=== PATIENT | male | born 1960 | race Caucasian/White ===

== ENCOUNTER 2024-04-18 14:08 | Outpatient (AMB) | payer MEDICARE, OTHER, SELFPAY ==
[2024-04-18 14:31] VITALS: BP 122/62; PULSE 75; O2SAT 92; BMI 47.2
--- NOTE | 2024-04-18 14:31 | HO.NEPHOV ---
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 He is severe hypokalemia and he is on high dose of diuretics. Since his last visit he has lost about 20 lb. Mofanro added 4 weeks [facility] Family History Mother Cancer Heart disease Hypertension Father Hypertension Diabetes Stroke Heart disease Physical Exam Vital Signs: Last Vital Signs Pulse 75 04/18/24 14:31 BP 122/62 04/18/24 14:31 Pulse Ox 92 04/18/24 14:31 Oxygen Delivery Method Room Air 04/18/24 14:31 BMI result Body Mass Index 47.2 Const General: comfortable Nutritional Appearance: well nourished Orientation/consciousness: patient oriented x3 HEENT Head: No normal to inspection Mouth: moist mucous membranes Neck Neck: Yes supple and Yes no JVD Resp Auscultation: clear to auscultation bilaterally, no rales and rub present Cardio Jugular venous distension: no JVD Palpation: no palpable S3 and no palpable S4 Heart sounds: no rubs GI Palpation (GI): Soft to palpation and nontender Percussion: No Fluid wave present General: Yes no CVA tenderness Back/Spine/Pelvis Back: no CVA tenderness Skin General skin exam: no rashes or lesions noted Neuro General: patient oriented x3 Extrem General: No clubbing, Yes edema and Yes other (Leg ulcers) Results Reviewed Results Reviewed: Labs reviewed Nephrology Results: No Data to Display Assessment & Plan Assessment & Plan (1) CKD (chronic kidney disease): Code(s): N18.9 - Chronic kidney disease, unspecified Category: Medical (2) Hypokalemia: Code(s): E87.6 - Hypokalemia Category: Medical Plan Dean has CKD 3B in the setting of longstanding hypertension diabetes medicine obesity. Serum creatinine has been stable around baseline of 1.4-1.8. Goal is to slow the portion disease Continue overt nephrotoxic agents including NSAIDs. He is significant fluid overload. He is currently on Lasix 80 mg along with metolazone 2.5 mg. Due to high dose of diuretics he has had significant hypokalemia requiring potassium supplementation 12 tablets twice a day. Repeat serum electrolytes ordered. History of resistant hypertension primarily due to fluid overload At this point blood pressure is well controlled. Not been able to tolerate spironolactone. We will continue with amiloride 2.5 mg. In the past he was not able to tolerate higher dose of 5 mg. Mild secondary hyperparathyroidism we will check PTH and calcium prior to next visit. Orders: Orders Complete Blood Count Auto Diff Today E87.6 - Hypokalemia, N18.30 - Chronic kidney disease, stage 3 unspecified, N18.9 - Chronic kidney disease, unspecified Creatinine Urine Today E87.6 - Hypokalemia, N05.9 - Unspecified nephritic syndrome with unspecified morphologic changes, N18.9 - Chronic kidney disease, unspecified Comprehensive Met. Panel Today E87.6 - Hypokalemia, N18.9 - Chronic kidney disease, unspecified Total Protein Urine Random Today E87.6 - Hypokalemia, N18.9 - Chronic kidney disease, unspecified UA and rflx microscopic Today E87.6 - Hypokalemia, N18.9 - Chronic kidney disease, unspecified Coding Level of Care Code Est Pt Level 4 (74131) Diagnoses CKD (chronic kidney disease) N18.9 Hypokalemia E87.6
== END 2024-04-18 14:51 | disposition home or self-care (01) ==
LOC: HO.HKAE 14:08
PROVIDERS: PCP Internal Medicine; Referring Provider Internal Medicine; Visit Provider Internal Medicine Hypertension Specialist
DX: N18.9 Chronic kidney disease, unspecified (principal); E87.6 Hypokalemia
CPT/HCPCS: 99214

== ENCOUNTER → 2024-04-18 14:08 | Outpatient (BNVA) | payer MEDICARE, SELFPAY | PROVIDERS: PCP Internal Medicine; Visit Provider Internal Medicine Hypertension Specialist | DX: E87.6 Hypokalemia (principal); N18.30 Chronic kidney disease, stage 3 unspecified | CPT/HCPCS: 99212 ==

== ENCOUNTER 2024-08-22 14:39 | Outpatient (AMB) | payer MEDICARE, OTHER, SELFPAY ==
[2024-08-22 14:35] VITALS: BP 124/64; PULSE 67; O2SAT 98; BMI 44.1
--- NOTE | 2024-08-22 14:35 | HO.NEPHOV_ITS ---
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 Accompanied by: Self / Same As Patient Allergies amoxicillin Allergy (Unknown, Verified 08/22/24 14:40) Unknown dobutamine Allergy (Unknown, Verified 08/22/24 14:40) Unknown niacin Allergy (Unknown, Verified 08/22/24 14:40) Unknown oxycodone Allergy (Unknown, Verified 08/22/24 14:40) Unknown lodinated contrast media Allergy (Unknown, Uncoded 04/09/24 15:25) Unknown Medication List - Last Reconciled 08/22/24 by Erasmo Meyer MD alprazolam mg PO amiloride 2.5 mg PO DAILY bupropion HCl XL 150 mg PO QAM bupropion HCl XL 300 mg PO DAILY carvedilol 25 mg PO DAILY clopidogrel 75 mg PO DAILY furosemide 80 mg PO DAILY insulin glargine (Lantus U-100 Insulin) 32 units subcut BID insulin lispro (Humalog KwikPen (U-100) Insulin) 32 units subcut PRN insulin syringe-needle U-100 As directed metolazone 2.5 mg PO DAILY nitroglycerin 0.4 mg/hr transdermal pantoprazole 40 mg PO BID potassium chloride ER (Klor-Con) mEq PO ranolazine ER 500 mg PO DAILY rosuvastatin 40 mg PO DAILY sacubitril-valsartan 49-51 mg (Entresto) 1 tab PO BID tirzepatide (Mounjaro) mg subcut QWEEK warfarin 5 mg PO DAILY warfarin 1 mg PO DAILY HPI Comments Details: Dean is a pleasant 63-year-old man with a history of longstanding diabetes mellitus hypertension obesity. He is severe hypokalemia and he is on high dose of diuretics. Since his last visit he has lost about 20 lb. Mounjaro added in February He has lost > 30 lbs Feels dizzy when he bends down Still on LAsix 80 mf and MMetolazone 2.5 mg QD KCL 12 tabs a day PFSH Family History Mother Cancer Heart disease Hypertension Father Hypertension Diabetes Stroke Heart disease Physical Exam Vital Signs: Last Vital Signs Pulse 67 08/22/24 14:35 BP 124/64 08/22/24 14:35 Pulse Ox 98 08/22/24 14:35 Oxygen Delivery Method Room Air 08/22/24 14:35 BMI result Body Mass Index 44.1 Const General: comfortable Nutritional Appearance: well nourished Orientation/consciousness: patient oriented x3 HEENT Head: No normal to inspection Mouth: moist mucous membranes Neck Neck: Yes supple and Yes no JVD Resp Auscultation: clear to auscultation bilaterally, no rales and rub present Cardio Jugular venous distension: no JVD Palpation: no palpable S3 and no palpable S4 Heart sounds: no rubs GI Palpation (GI): Soft to palpation and nontender Percussion: No Fluid wave present General: Yes no CVA tenderness Back/Spine/Pelvis Back: no CVA tenderness Skin General skin exam: no rashes or lesions noted Neuro General: patient oriented x3 Extrem General: No clubbing, Yes edema and Yes other (Leg ulcers) Results Reviewed Nephrology Results: No Data to Display Assessment & Plan Assessment & Plan (1) CKD (chronic kidney disease): Code(s): N18.9 - Chronic kidney disease, unspecified Category: Medical (2) Hypokalemia: Code(s): E87.6 - Hypokalemia Category: Medical Plan Dean has CKD 3B in the setting of longstanding hypertension diabetes medicine obesity. Serum creatinine has been stable around baseline of 1.4-1.8. Goal is to slow the portion disease Continue overt nephrotoxic agents including NSAIDs. s/p fluid overload. He is currently on Lasix 80 mg along with metolazone 2.5 mg. Due to high dose of diuretics he has had significant hypokalemia requiring potassium supplementation 12 tablets twice a day. Repeat serum electrolytes ordered. Check today and again once a month x 2 History of resistant hypertension primarily due to fluid overload At this point blood pressure is well controlled. Not been able to tolerate spironolactone. We will continue with amiloride 2.5 mg. In the past he was not able to tolerate higher dose of 5 mg. Decrease Metolazone to 2.5 mg QOD Orders: Orders Basic Metabolic Panel 1 Month E87.6 - Hypokalemia, N18.9 - Chronic kidney disease, unspecified Basic Metabolic Panel 2 Months E87.6 - Hypokalemia, N18.9 - Chronic kidney disease, unspecified Basic Metabolic Panel Today E87.6 - Hypokalemia, N18.9 - Chronic kidney disease, unspecified Coding Level of Care Code Est Pt Level 4 (23479) Diagnoses CKD (chronic kidney disease) N18.9 Hypokalemia E87.6
== END 2024-08-22 14:59 | disposition home or self-care (01) ==
PROVIDERS: PCP Internal Medicine; Visit Provider Internal Medicine Hypertension Specialist
DX: E11.22 Type 2 diabetes mellitus with diabetic chronic kidney disease (principal); N18.32 Chronic kidney disease, stage 3b; E87.6 Hypokalemia
CPT/HCPCS: 99214

== ENCOUNTER → 2024-08-22 14:39 | Outpatient (BNVA) | payer MEDICARE, OTHER, SELFPAY | PROVIDERS: PCP Internal Medicine; Visit Provider Internal Medicine Hypertension Specialist | DX: N18.9 Chronic kidney disease, unspecified (principal); E87.6 Hypokalemia | CPT/HCPCS: 99212 ==

== ENCOUNTER 2024-11-07 13:54 | Outpatient (AMB) | payer MEDICARE, OTHER, SELFPAY ==
[2024-11-07 13:56] VITALS: BP 128/70; PULSE 76; O2SAT 98; BMI 45.6
--- NOTE | 2024-11-07 13:56 | HO.NEPHOV_ITS ---
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 Accompanied by: Self / Same As Patient Allergies amoxicillin Allergy (Unknown, Verified 11/07/24 13:58) Unknown dobutamine Allergy (Unknown, Verified 11/07/24 13:58) Unknown niacin Allergy (Unknown, Verified 11/07/24 13:58) Unknown oxycodone Allergy (Unknown, Verified 11/07/24 13:58) Unknown lodinated contrast media Allergy (Unknown, Uncoded 04/09/24 15:25) Unknown Medication List - Last Reconciled 11/07/24 by Erasmo Meyer MD alprazolam mg PO amiloride 2.5 mg PO DAILY bupropion HCl XL 150 mg PO QAM bupropion HCl XL 300 mg PO DAILY carvedilol 25 mg PO DAILY clopidogrel 75 mg PO DAILY furosemide 80 mg PO DAILY insulin glargine (Lantus U-100 Insulin) 32 units subcut BID insulin lispro (Humalog KwikPen (U-100) Insulin) 32 units subcut PRN insulin syringe-needle U-100 As directed metolazone 2.5 mg PO DAILY nitroglycerin 0.4 mg/hr transdermal pantoprazole 40 mg PO BID potassium chloride ER (Klor-Con) mEq PO ranolazine ER 500 mg PO DAILY rosuvastatin 40 mg PO DAILY sacubitril-valsartan 49-51 mg (Entresto) 1 tab PO BID tirzepatide (Mounjaro) mg subcut QWEEK warfarin 5 mg PO DAILY warfarin 1 mg PO DAILY HPI Comments Details: Dean is a pleasant 63-year-old man with a history of longstanding diabetes mellitus hypertension obesity. He is severe hypokalemia and he is on high dose of diuretics. Since his last visit he has lost about 20 lb. Mounjaro added in February 2024 He has lost > 30 lbs Still on Lasix 80 mf and Metolazone 2.5 mg QD KCL 12 tabs a day PFSH Family History Mother Cancer Heart disease Hypertension Father Hypertension Diabetes Stroke Heart disease Physical Exam Vital Signs: Last Vital Signs Pulse 76 11/07/24 13:56 BP 128/70 11/07/24 13:56 Pulse Ox 98 11/07/24 13:56 Oxygen Delivery Method Room Air 11/07/24 13:56 BMI result Body Mass Index 45.6 Const General: comfortable Nutritional Appearance: well nourished Orientation/consciousness: patient oriented x3 HEENT Head: No normal to inspection Mouth: moist mucous membranes Neck Neck: Yes supple and Yes no JVD Resp Auscultation: clear to auscultation bilaterally, no rales and rub present Cardio Jugular venous distension: no JVD Palpation: no palpable S3 and no palpable S4 Heart sounds: no rubs GI Palpation (GI): Soft to palpation and nontender Percussion: No Fluid wave present General: Yes no CVA tenderness Back/Spine/Pelvis Back: no CVA tenderness Skin General skin exam: no rashes or lesions noted Neuro General: patient oriented x3 Extrem General: No clubbing, Yes edema and Yes other (Leg ulcers) Results Reviewed Nephrology Results: No Data to Display Assessment & Plan Assessment & Plan (1) CKD (chronic kidney disease): Code(s): N18.9 - Chronic kidney disease, unspecified Category: Medical (2) Hypokalemia: Code(s): E87.6 - Hypokalemia Category: Medical Plan Dean has CKD 3B in the setting of longstanding hypertension diabetes medicine obesity. Serum creatinine has been stable around baseline of 1.4-1.8. Goal is to slow the portion disease Continue overt nephrotoxic agents including NSAIDs. s/p fluid overload. He is currently on Lasix 80 mg along with metolazone 2.5 mg. Due to high dose of diuretics he has had significant hypokalemia requiring potassium supplementation 12 tablets twice a day. Repeat serum electrolytes ordered. History of resistant hypertension primarily due to fluid overload At this point blood pressure is well controlled. Not been able to tolerate spironolactone. We will continue with amiloride 2.5 mg. In the past he was not able to tolerate higher dose of 5 mg. Keep Metolazone 2.5 mg Orders: Orders Basic Metabolic Panel 4 Months E87.6 - Hypokalemia, N18.9 - Chronic kidney disease, unspecified Coding Level of Care Code Est Pt Level 4 (24636) Diagnoses CKD (chronic kidney disease) N18.9 Hypokalemia E87.6
--- OUTSIDE RECORDS SUMMARY | 2024-11-08 02:38 | XMS_ITS ---
Author Name [facility] Organization Unknown Results Test Name/Text Value Interpretation Date Range Source PT TIME PPP 36sec Above high normal [id number] 10.5 - 13.3 [facility] INR PPP 3.1 Above high normal [id number] 0.8 - 1.1 [facility] Hgb A1c MFr Bld HPLC 7% Above high normal [id number] 3 - 5.7 [facility] BUN SERPL [facility] 18mg/dL Normal [id number] 9 - 20 [facility] CREAT SERPL [facility] 1.4mg/dL Above high normal [id number] 0. 7 - 1.3 [facility] Glomerular filtration rate/1.73 sq M. predicted 56 Below low normal [id number] 60 - [facility] SODIUM SERPL [facility] 140mmol/L Normal [id number] 135 - 145 [facility] ANION GAP SERPL [facility] 7mmol/L Normal [id number] 5 - 14 [facility] HCO3 SER [facility] 36mmol/L Above high normal [id number] 24 - 32 [facility] CHLORIDE SERPL [facility] 97mmol/L Below low normal [id number] 98 - 107 [facility] POTASSIUM SERPL [facility] 3.3mmol/L Below low normal [id number] 3.5 - 5.1 [facility] PT TIME PPP 32.8sec Above high normal [id number] 10.5 - 13.3 [facility] INR PPP 2.8 Above high normal [id number] 0.8 - 1.1 [facility] PT TIME PPP 36.6sec Above high normal [id number] 10.5 - 13.3 [facility] INR PPP 3 Above high normal [id number] 0.8 - 1.1 [facility] History of Medication Use Medication Directions Dispensed Refills Start Date End Date Stat MOUNJARO 5mg/0.5mL Pre-Filled Pen Solution for Injection 06/21/2024 active tirzepatide (Mounjaro) 2.5 MG/0.5ML Inject 0.5 mL (2.5 mg total) under the skin once a week. 04/27/2024 aborted tirzepatide (Mounjaro) 5 MG/0.5ML Inject 0.5 mL (5 mg total) under the skin every 7 days. 04/27/2024 active Blood Glucose Monitoring Suppl (Accu-Chek Guide) w/Device KIT 1 Device by Does not apply route 3 (three) times a day. Use to test blood sugar daily. 04/27/2024 active Silvadene 1% Topical Cream 04/06/2024 active Klor-Con M10 10 MEQ tablet TAKE 12 TABLETS BY MOUTH TWICE DAILY DO NOT CRUSH CHEW OR SPLIT. 03/29/2024 active nitroglycerin (NITRODUR) 0.4 MG/HR APPLY PATCH TRANSDERMALLY EVERY DAY REMOVE AFTER 12 HOURS 03/29/2024 active buPROPion (WELLBUTRIN XL) 300 MG 24 hr tablet Take by mouth every morning. 03/29/2024 active MAGNESIUM OXIDE PO Take 400 mg by mouth daily. 03/29/2024 active insulin glargine (LANTUS) injection 100 units/mL INJECT 68 UNITS UNDER THE SKIN TWICE DAILY 03/29/2024 active Insulin Lispro, 1 Unit Dial, (HumaLOG KWIKPEN) 100 UNIT/ML SOPN ADMINISTER UP TO 40 UNITS UNDER THE SKIN TWICE DAILY BEFORE MEALS 03/29/2024 active nitroglycerin (NITROSTAT) 0.[address] 1 tablet (0.4 mg total) under the tongue every 5 (five) minutes as needed. 03/29/2024 active gentamicin (GARAMYCIN) 0.1 % ointment Apply topically daily. 03/29/2024 active ENTRESTO 49-51 MG per tablet 1 tablet 2 (two) times a day. 03/29/2024 active Glucagon (Gvoke HypoPen 2-Pack) 1 MG/0.2ML SOAJ Inject 1 mg under the skin as needed (for severe hypoglycemia, if used call 911). 03/29/2024 active carvedilol (COREG) 25 MG tablet Take by mouth every morning. 03/29/2024 active KLOR-CON 10 10 MEQ tablet Take 24 mEq by mouth daily. 03/29/2024 active warfarin (COUMADIN) 5 MG tablet TK 1 T PO QD 03/29/2024 active warfarin (COUMADIN) 1 MG tablet Take by mouth. Takes 9 mg on Tuesdays and Saturdays. Takes 6 mg on all other days 03/29/2024 active Blood Glucose Monitoring Suppl (Accu-Chek Guide) w/Device KIT 1 Device by Does not apply route 3 (three) times a day. Use to test blood sugar daily. 03/29/2024 active rosuvastatin (CRESTOR) tablet 40 mg Take by mouth. 03/29/2024 active ALPRAZolam (XANAX) 0.5 MG tablet 3 (three) times a day. 03/29/2024 active ranolazine (RANEXA) 500 MG 12 hr tablet Take 1 tablet (500 mg total) by mouth 2 (two) times a day. 03/29/2024 active pantoprazole (PROTONIX) 40 MG tablet 03/29/2024 active clopidogrel (PLAVIX) 75 MG tablet Take by mouth. 03/29/2024 active tirzepatide (Mounjaro) 2.5 MG/0.5ML Inject 0.5 mL (2.5 mg total) under the skin once a week. 03/29/2024 active PROAIR HFA 108 (90 BASE) MCG/ACT inhaler INHALE 2 PUFFS PO Q 6 H PRN 03/29/2024 active metOLazone (ZAROXOLYN) 2.5 MG tablet 03/29/2024 active buPROPion (WELLBUTRIN XL) 150 MG 24 hr tablet every evening. 03/29/2024 activ e glucose blood test strip Use as instructed 03/29/2024 active furosemide (LASIX) 80 MG tablet Take by mouth every morning. 03/29/2024 active AMILoride (MIDAMOR) 5 MG tablet Take 0.5 tablets (2.5 mg total) by mouth every morning. 03/29/2024 active aMILoride (MIDAMOR) 5 MG tablet Take 5 mg by mouth daily. 03/28/2024 active albuterol (PROVENTIL HFA; VENTOLIN HFA) 108 (90 Base) MCG/ACT inhaler Inhale 2 puffs every 4 (four) hours as needed. 03/28/2024 active ALPRAZolam (XANAX) 0.5 MG tablet Take 0.5 mg by mouth 4 times daily (every 6 hours) as needed. anxiety 03/28/2024 active furosemide (LASIX) 80 MG tablet Take 80 mg by mouth daily. 03/28/2024 active rosuvastatin (CRESTOR) 40 MG tablet Take 40 mg by mouth daily. 03/28/2024 active insulin glargine (Lantus) 100 units/mL injection Inject 72 Units under the skin nightly. 03/28/2024 active carvedilol (COREG) 25 MG tablet Take 25 mg by mouth 2 (two) times a day with meals. 03/28/2024 active buPROPion (WELLBUTRIN XL) 300 MG 24 hr tablet Take 300 mg by mouth every morning. 03/28/2024 active buPROPion (WELLBUTRIN XL) 150 MG 24 hr tablet Take 150 mg by mouth every morning. 03/28/2024 active clopidogrel (PLAVIX) 75 MG tablet Take 75 mg by mouth daily. 03/28/2024 active insulin lispro (HumaLOG MALIK KWIKPEN) 100 UNIT/ML prefilled pen injection Inject 52 Units under the skin 3 (three) times a day before meals. 03/28/2024 active sacubitril-valsartan (ENTRESTO) 49-51 mg per tablet Take 1 tablet by mouth 2 (two) times a day. 03/28/2024 active raNOLazine (raNEXa) 500 MG 12 hr tablet Take 500 mg by mouth twice daily (every 12 hours). 03/28/2024 active metolazone (ZAROXOLYN) 2.5 MG tablet Take 2.5 mg by mouth daily. 03/28/2024 active warfarin (COUMADIN) 1 MG tablet Take 1 mg by mouth daily at the same time. 03/28/2024 active warfarin (COUMADIN) 5 MG tablet Take 5 mg by mouth daily at the same time. 03/28/2024 active liraglutide (VICTOZA) 18 MG/3ML prefilled pen injection Inject 1.8 mg under the skin daily. 03/28/2024 active potassium chloride (KLOR-CON M10) 10 MEQ tablet Take 120 mEq by mouth 2 (two) times a day. 03/28/2024 active PANTOprazole (PROTONIX) 40 MG EC tablet Take 40 mg by mouth daily. 03/28/2024 active Silvadene 1% Topical Cream 03/25/2024 active MOUNJARO 10mg/0.5mL Pre-Filled Pen Solution for Injection 03/25/2024 active nitroglycerin 0.4 mg sublingual tablet TAKE DIRECTED 05/06/2023 a ctive warfarin 1 mg tablet TAKE 1- 2 TABLETS BY MOUTH EVERY DAY DIRECTED 05/06/2023 active Wellbutrin xl 300MG Tablet Extended Release 24 Hour 11/08/2023 active Kenalog 40 mg/mL suspension for injection 05/29/2023 active carvedilol 25 mg tablet TAKE 1 TABLET BY MOUTH EVERY DAY 05/06/2023 active Marcaine (PF) 0.5 % (5 mg/mL) injection solution Take 4 mL by injection route. 05/29/2023 active buPROPion (WELLBUTRIN XL) 150 MG 24 hr tablet every evening. 12/10/2023 activ e Kenalog 10 mg/mL suspension for injection 05/06/2023 active Entresto 49 mg-51 mg tablet TAKE 1 TABLET BY MOUTH TWICE DAILY 05/06/2023 active Nitroglycerin 0.4mg Sublingual Tablet 11/08/2023 active Amiloride Hydrochloride 5mg Tablet 11/08/2023 active liraglutide (Victoza) 18 MG/3ML injection Inject 1.8 mg under the skin daily. 12/10/2023 aborted furosemide (LASIX) 80 MG tablet Take by mouth every morning. 12/10/2023 active Nitroglycerin 0.4mg/hr Transdermal Patch 11/08/2023 active Warfarin Sodium 6mg Tablet 11/08/2023 active warfarin 5 mg tablet TAKE 1 TABLET BY MOUTH EVERY DAY DIRECTED 05/06/2023 active alprazolam 0.5 mg tablet TAKE 1 TABLET BY MOUTH THREE TIMES DAILY 05/06/2023 active KLOR-CON 10 10 MEQ tablet Take 24 mEq by mouth daily. 12/10/2023 active ranolazine (RANEXA) 500 MG 12 hr tablet Take 1 tablet (500 mg total) by mouth 2 (two) times a day. 12/10/2023 active lidocaine (PF) 100 mg/5 mL (2 %) injection syringe Take 4 mL by injection route. 05/06/2023 active clopidogrel 75 mg tablet TAKE 1 TABLET BY MOUTH DAILY 05/06/2023 active Warfarin Sodium 1mg Tablet 11/08/2023 active gentamicin (GARAMYCIN) 0.1 % ointment Apply topically daily. 12/10/2023 active Klor-Con M10 10 MEQ tablet TAKE 12 TABLETS BY MOUTH TWICE DAILY DO NOT CRUSH CHEW OR SPLIT. 12/10/2023 active bupropion HCl XL 150 mg 24 hr tablet, extended release TAKE 1 TABLET BY MOUTH EVERY NIGHT AT BEDTIME 05/06/2023 active Victoza 3-Willis 0.6 mg/0.1 mL (18 mg/3 mL) subcutaneous pen injector ADMINISTER 1.8 MG UNDER THE SKIN DAILY 05/06/2023 active Blood Glucose Monitoring Suppl (ACCU-CHEK DENG SMARTVIEW) w/Device KIT Use to test blood sugar daily. 12/10/2023 active pantoprazole 40 mg tablet,delayed release TAKE 1 TABLET BY MOUTH TWICE DAILY 05/06/2023 active Alprazolam 0.5mg Tablet 11/08/2023 active furosemide 80 mg tablet TAKE 1 TABLET BY MOUTH EVERY DAY 05/06/2023 active KLOR-CON 10 10 MEQ tablet Take 24 mEq by mouth daily. 12/10/2023 active Glucagon (Gvoke HypoPen 2-Pack) 1 MG/0.2ML SOAJ Inject 1 mg under the skin as needed (for severe hypoglycemia, if used call 911). 12/10/2023 active Humalog KwikPen (U-100) Insulin 100 unit/mL subcutaneous INJECT UP TO 54 UNITS UNDER THE SKIN TWICE DAILY BEFORE MEALS 05/06/2023 active pantoprazole (PROTONIX) 40 MG tablet 12/10/2023 active rosuvastatin (CRESTOR) tablet 40 mg Take by mouth. 12/10/2023 active Marcaine (PF) 0.5 % (5 mg/mL) injection solution 05/29/2023 active rosuvastatin 40 mg tablet TAKE 1 TABLET BY MOUTH EVERY DAY 05/06/2023 active MAGNESIUM OXIDE PO Take 400 mg by mouth daily. 12/10/2023 active ranolazine ER 500 mg tablet,extended release,12 hr TAKE 1 TABLET BY MOUTH EVERY DAY 05/06/2023 active buPROPion (WELLBUTRIN XL) 300 MG 24 hr tablet Take by mouth every morning. 12/10/2023 active metolazone 2.5 mg tablet 05/06/2023 active carvedilol (COREG) 25 MG tablet Take by mouth every morning. 12/10/2023 active lidocaine (PF) 100 mg/5 mL (2 %) injection syringe 05/06/2023 active Lantus Solostar U-100 Insulin 100 unit/mL (3 mL) subcutaneous pen ADMINISTER 74 UNITS UNDER THE SKIN TWICE DAILY 05/06/2023 active amiloride 5 mg tablet TAKE 1/2 TABLET BY MOUTH EVERY DAY 05/06/2023 active warfarin (COUMADIN) 5 MG tablet TK 1 T PO QD 12/10/2023 active clopidogrel (PLAVIX) 75 MG tablet Take by mouth. 12/10/2023 active Semaglutide,0.25 or 0.5MG/DOS, (Ozempic, 0.25 or 0.5 MG/DOSE,) 2 MG/3ML SOPN Inject 0.75 mL (0.5 mg total) under the skin once a week. 12/10/2023 active Kenalog 40 mg/mL suspension for injection Take 1 mL by injection route. 05/29/2023 active metOLazone (ZAROXOLYN) 2.5 MG tablet 12/10/2023 active ALPRAZolam (XANAX) 0.5 MG tablet 3 (three) times a day. 12/10/2023 active AMILoride (MIDAMOR) 5 MG tablet Take 0.5 tablets (2.5 mg total) by mouth every morning. 12/10/2023 active Lantus U-100 Insulin 100 unit/mL subcutaneous solution INJECT 84 UNITS UNDER THE SKIN TWICE DAILY. 05/06/2023 active Accu-Chek SmartView Test Strips TEST FOUR TIMES DAILY 05/06/2023 active warfarin (COUMADIN) 1 MG tablet Take by mouth. Takes 9 mg on Tuesdays and Saturdays. Takes 6 mg on all other days 12/10/2023 active PROAIR HFA 108 (90 BASE) MCG/ACT inhaler INHALE 2 PUFFS PO Q 6 H PRN 12/10/2023 active nitroglycerin (NITROSTAT) 0.[address] 1 tablet (0.4 mg total) under the tongue every 5 (five) minutes as needed. 12/10/2023 active Lantus 11/08/2023 active Ranexa 500MG Tablet Extended Release 12 Hour 11/08/2023 active Bupropion Hydrochloride 150mg Extended-Release (XL) Tablet 11/08/2023 active nitroglycerin (NITRODUR) 0.4 MG/HR APPLY PATCH TRANSDERMALLY EVERY DAY REMOVE AFTER 12 HOURS 12/10/2023 active bupropion HCl XL 300 mg 24 hr tablet, extended release TAKE 1 TABLET BY MOUTH EVERY DAY 05/06/2023 active nitroglycerin 0.4 mg/hr transdermal 24 hour patch APPLY 1 PATCH TRANSDERMALLY EVERY DAY AND REMOVE AFTER 12 HOURS 05/06/2023 active Kenalog 10 mg/mL suspension for injection Take 2 mL by injection route. 05/06/2023 active ENTRESTO 49-51 MG per tablet 1 tablet 2 (two) times a day. 12/10/2023 active insulin glargine (LANTUS) injection 100 units/mL INJECT 84 UNITS UNDER THE SKIN TWICE DAILY. 12/10/2023 active Klor-Con 10 mEq tablet,extended release TAKE 12 TABLETS BY MOUTH TWICE DAILY. 05/06/2023 active Insulin Lispro, 1 Unit Dial, (HumaLOG KWIKPEN) 100 UNIT/ML SOPN INJECT UP TO 52 UNITS UNDER THE SKIN TWICE DAILY BEFORE MEALS 12/10/2023 active Allergies Allergen Reaction Severity Comment Documented Date Source Statu s DYES ENS_PODCRCT Problems Problem Status Onset Date Problem Type Date of Resolution Source Contusion of right great toe with damage to nail, sequela active 2020-07-29 8 ProblemAct ENS_PODCRCT Type 2 diabetes mellitus with diabetic polyneuropathy active 2024-05-29 3 EncounterDiagnosisAct ENS_PODCRCT Osteoarthritis of left knee joint active 2023-04-30 0 ProblemAct ENS_AONECT Ulcer - Non-pressure/diabetic /venous stasis of LEFT toe(s) limited to breakdown of skin active 1 ProblemAct ENS_PODCRCT Ulcer - Non-pressure/diabetic /venous stasis of RIGHT toe(s) limited to breakdown of skin active 2020-07-29 8 ProblemAct ENS_PODCRCT Dystrophia unguium active 2019-04-28 4 ProblemAct [facility] Contusion of right great toe with damage to nail, initial encounter active 8 ProblemAct [facility]NS_PODCR[facility] Ulcer - Non-pressure/diabetic /venous stasis of LEFT lower leg (NOT CALF) limited to breakdown of skin active 2024-05-29 3 ProblemAct ENS_PODCRCT Degenerative arthritis of thoracic spine active 2015-05-30 0 ProblemAct [facility] Insulin treated type 2 diabetes mellitus active 2016-10-29 1 ProblemAct ENS_PODCRCT CONTUSION OF TOE active 2012-09-28 3 ProblemAct ENS_PODCRCT Contusion of left lesser toe(s) with damage to nail, subsequent encounter active 2020-02-28 9 ProblemAct ENS_PODCRCT Cellulitis of left lower limb active 2020-02-28 2 ProblemAct ENS_PODCRCT DIABETES UNCOMP /CONTROLLED active 2012-09-28 3 ProblemAct ENS_PODCRCT Blister left lesser toe(s), initial encounter active 1 ProblemAct ENS_PODCRCT Absent pedal pulses active 9 ProblemAct ENS_PODCRCT Peroneal tendinitis, left leg active 9 ProblemAct ENS_PODCR[facility] Neurologic disorder associated with type II diabetes mellitus active 2016-07-30 8 ProblemAct ENS_PODCRCT Type 2 diabetes mellitus with foot ulcer active 2020-07-29 8 ProblemAct ENS_PODCRCT Contusion of left great toe without damage to nail, initial encounter active 2021-03-28 2 ProblemAct ENS_PODCRCT PARONYCHIA TOE active 2012-09-28 3 ProblemAct [facility] Diabetic polyneuropathy active 2015-05-30 0 ProblemAct [facility] Chronic kidney disease, stage IV (severe) active 2018-06-28 2 ProblemAct [facility] Hyperlipidemia active 2015-05-30 0 ProblemAct [facility] Lightheadedness active 2018-06-28 2 ProblemAct [facility] Right-sided chest pain active 2018-06-28 2 ProblemAct [facility] Equinus,Tailor bunion, acquired pes cavus, plantar flex met, LEFT other acquired deformities active 2016-04-29 4 ProblemAct ENS_PODCRCT Pain in left toe(s) active 2020-05-29 9 ProblemAct ENS_PODCRCT Equinus, Tailor bunion, acquired pes cavus, plantar flex met, RIGHT other acquired deformities active 2016-04-29 4 ProblemAct ENS_PODCRCT Contusion of left lesser toe(s) with damage to nail, initial encounter active 2020-02-28 2 ProblemAct ENS_PODCR[facility] Onychogryphosis -Nail active 2016-04-29 4 ProblemAct ENS_PODCRCT Controlled type 2 diabetes mellitus with diabetic nephropathy, with long-term current use of insulin active 2017-01-27 7 ProblemAct [facility] Supratherapeutic INR active 2018-06-28 2 ProblemAct [facility] Nephritis and nephropathy, not specified as acute or chronic, with other specified pathological lesion in kidney, in diseases classified elsewhere active 2015-05-30 0 ProblemAct [facility] Coronary atherosclerosis active 2015-05-30 0 ProblemAct [facility] CRI (chronic renal insufficiency) active 2015-05-30 0 ProblemAct [facility] Essential hypertension active 2015-05-30 0 ProblemAct [facility] Ingrowing nail active 8 ProblemAct ENS_PODCRCT Cellulitis of right toe, paronychia active 2024-02-28 3 ProblemAct ENS_PODCRCT Activity, walking, marching and hiking active 2020-02-28 9 ProblemAct ENS_PODCRCT Pain in right toe(s) active 8 ProblemAct [facility]NS[facility]POD[facility] INGROWING NAIL active 2012-09-28 3 ProblemAct ENS_PODCRCT
--- OUTSIDE RECORDS SUMMARY | 2024-11-08 02:38 | XMS_ITS | Continuity of Care Document ---
Author Organization [facility] Address [address] [place] [address] [address] [place] [address] Phone Care Team Providers Care Medical Management Specialist Name Role Phone Ricardo Bunch MD Unavailable Unavailable Procedures Procedure Date Office/Oupt E&M New Pt 45 Mins- CT & [place] Duplex Scan-extrem Veins; Comp- [place] & [place] Advance Directives Directive Yes / No Effective Date File Name No Information Encounters Encounter Description Practice Location Reason(s) For Visit Diagnoses Date Provider Providers Copied on Encounter Office/Oupt E&M New Pt 45 Mins- [place] & [place] [facility], [address], [place], [place], [id number], tel:[phone] [facility] - [place] - [place] Varicose veins of bilateral lower extremities with other complicationsVaric ose veins of right lower extremity with inflammationVarico se veins of left lower extremity with inflammationVarico se veins of right lower extremity with ulcer of calfType 2 diabetes mellitus without complicationsEssen tial (primary) hypertensionVarico se veins of left lower extremity with ulcer of calfLymphedema, not elsewhere classifiedPruritus , unspecifiedDisorde r of pigmentation, unspecifiedNon-pre ssure chronic ulcer of right calf with unspecified severityNon-pressu re chronic ulcer of left calf with unspecified severityPain in right legPain in left legPain in right lower legPain in left lower legHereditary lymphedemaLocalize d edema 4 Alivia Silva. [address] [place], [address], [place]. tel: [phone] Referring Provider: Fadumo Stewart, [address], [place], [address]. tel:[phone] [facility], [address] [address], [place], [place], [id number], [place] [phone] [facility] - [place] Chronic venous hypertension (idiopathic) with other complications of bilateral lower extremity 4 Laz Magaña. [address] [place] [address], [address], [place], [place], [id number] , . tel: [phone] Referring Provider: Gómez Treviño, [address] [place] [address] [address], [place], [address] . tel:[phone] Family History Family Member Type Diagnosis Age At Onset No Information Payers Payer name Insurance type Covered republican ID Authoriza tion(s) [employer] Medicare Advantage [id number] Medical Assistance [facility] [id number] Social History Type Description Quantity Date Captured Comments Alcohol Use Details Unknown Caffeine Use Details Unknown Tobacco Use Status Current non-smoker Smoking Status Never Smoker Non-Smoking Tobacco Use Details : No Details Available : No Details Available Sex Male Vital Signs Date / Time: Height Weight BMI Pulse Rate Blood Pressure Temperature Respiratory Rate Body Surface Area Head Circumference Head Circ. Percentile Wt./Santhosh. Percentile BMI percentile Pulse Ox Inhaled Ox 157.850 kg (348.00 lbs) 47.2 0 kg/m eter (2) 118/70 mm[Hg] Chief Complaint And Reason For Visit No Information Reason For Referral Reason For Referral No Information Plan Of Treatment Date Type Action Status Goal Diet education completed Referral Ordered: Weight management: Referral to physician timeframe: 3 Months (related to Body mass index (BMI) 45.0-49.9, adult) ordered History Of Present Illness Encounter Date Complaint History Of Prese nt Illness No Information Functional Status Date Functional Assessmen t No Information Instructions Date Instruction Additional Infor mation Pre and post instruc tions reviewed and provided Related to Varicose veins of bilateral lower extremities with other complications Diet education Related to Body mass index (BMI) 45.0-49.9, adult Giving Encouragement to exercise Related to Body mass index (BMI) 45.0-49.9, adult Lifestyle education Related to B arjun mass index (BMI) 45.0-49.9, adult Patient education booklet given Related to Varicose veins of bilateral lower extremities with other complications Assessments Type Assessment Date No Information Patient Care Teams Name Effective Dates (start - stop) Status Members No Information
== END 2024-11-07 14:13 | disposition home or self-care (01) ==
PROVIDERS: PCP Internal Medicine Pulmonary Disease; Visit Provider Internal Medicine Hypertension Specialist
DX: I12.9 Hypertensive chronic kidney disease with stage 1 through stage 4 chronic kidney disease, or unspecified chronic kidney disease (principal); E11.22 Type 2 diabetes mellitus with diabetic chronic kidney disease; N18.32 Chronic kidney disease, stage 3b; E87.6 Hypokalemia
CPT/HCPCS: 99214

== ENCOUNTER → 2024-11-07 13:54 | Outpatient (BNVA) | payer MEDICARE, OTHER, SELFPAY | PROVIDERS: PCP Internal Medicine Pulmonary Disease; Visit Provider Internal Medicine Hypertension Specialist | DX: E11.22 Type 2 diabetes mellitus with diabetic chronic kidney disease (principal); I12.9 Hypertensive chronic kidney disease with stage 1 through stage 4 chronic kidney disease, or unspecified chronic kidney disease; N18.9 Chronic kidney disease, unspecified; E87.6 Hypokalemia | CPT/HCPCS: 99212 ==

== ENCOUNTER 2025-03-20 14:28 | Outpatient (AMB) | payer MEDICARE, OTHER, SELFPAY ==
[2025-03-20 14:33] VITALS: BP 112/60; PULSE 73; O2SAT 98; BMI 43.2
--- NOTE | 2025-03-20 14:33 | HO.NEPHOV ---
Vital Signs 03/20/25 14:33 Height 6 ft Weight 318 lb 6 oz BMI 43.2 BP 112/60 Blood Pressure Location Lt brachial Position Sitting Pulse 73 Pulse Source Pulse Oximeter Pulse Oximetry (%) 98 Oxygen Delivery Method Room Air Intake Visit Reasons: CKD/ Conf Allergies amoxicillin Allergy (Unknown, Verified 03/20/25 14:36) Unknown dobutamine Allergy (Unknown, Verified 03/20/25 14:36) Unknown niacin Allergy (Unknown, Verified 03/20/25 14:36) Unknown oxycodone Allergy (Unknown, Verified 03/20/25 14:36) Unknown lodinated contrast media Allergy (Unknown, Uncoded 03/20/25 14:36) Unknown Medication List - Last Reconciled 03/20/25 by Erasmo Meyer MD alprazolam mg PO amiloride 2.5 mg PO DAILY bupropion HCl XL 150 mg PO QAM bupropion HCl XL 300 mg PO DAILY carvedilol 25 mg PO DAILY clopidogrel 75 mg PO DAILY furosemide 80 mg PO DAILY insulin glargine (Lantus U-100 Insulin) 32 units subcut BID insulin lispro (Humalog KwikPen (U-100) Insulin) 32 units subcut PRN insulin syringe-needle U-100 As directed metolazone 2.5 mg PO DAILY nitroglycerin 0.4 mg/hr transdermal pantoprazole 40 mg PO BID potassium chloride ER (Klor-Con) mEq PO ranolazine ER 500 mg PO DAILY rosuvastatin 40 mg PO DAILY sacubitril-valsartan 49-51 mg (Entresto) 1 tab PO BID tirzepatide (Mounjaro) mg subcut QWEEK warfarin 5 mg PO DAILY warfarin 1 mg PO DAILY HPI Comments Details: Dean is a pleasant 63-year-old man with a history of longstanding diabetes mellitus hypertension obesity. He is severe hypokalemia and he is on high dose of diuretics. Since his last visit he has lost about 20 lb. Mounjaro added in February 2024 He has lost > 30 lbs Still on Lasix 80 mg and Metolazone 2.5 mg QD KCL 12 tabs a day Here for follow up Maunjaro has been increased to 7.5 Wt is down to 318 lbs( 348 last yr) [facility] Family History Mother Cancer Heart disease Hypertension Father Hypertension Diabetes Stroke Heart disease Physical Exam Vital Signs: Last Vital Signs Pulse 73 03/20/25 14:33 BP 112/60 03/20/25 14:33 Pulse Ox 98 03/20/25 14:33 Oxygen Delivery Method Room Air 03/20/25 14:33 BMI result Body Mass Index 43.2 Const General: comfortable Nutritional Appearance: well nourished Orientation/consciousness: patient oriented x3 HEENT Head: No normal to inspection Mouth: moist mucous membranes Neck Neck: Yes supple and Yes no JVD Resp Auscultation: clear to auscultation bilaterally and no rales Cardio Jugular venous distension: no JVD Palpation: no palpable S3 and no palpable S4 Heart sounds: no rubs GI Palpation (GI): Soft to palpation and nontender Percussion: No Fluid wave present General: Yes no CVA tenderness Back/Spine/Pelvis Back: no CVA tenderness Skin General skin exam: no rashes or lesions noted Neuro General: patient oriented x3 Extrem General: No clubbing, Yes edema and Yes other (Leg ulcers) Results Reviewed Results Reviewed: Labs reviewed 03/11/25 Cr 1.8 and K 3.2 Nephrology Results: No Data to Display Assessment & Plan Assessment & Plan (1) CKD (chronic kidney disease): Code(s): N18.9 - Chronic kidney disease, unspecified Category: Medical (2) Hypokalemia: Code(s): E87.6 - Hypokalemia Category: Medical Plan Dean has CKD 3B in the setting of longstanding hypertension diabetes medicine obesity. Serum creatinine has been stable around baseline of 1.4-1.8. Goal is to slow the portion disease Continue to avoid nephrotoxic agents including NSAIDs. s/p fluid overload. He is currently on Lasix 80 mg along with metolazone 2.5 mg. Due to high dose of diuretics he has had significant hypokalemia requiring potassium supplementation 12 tablets twice a day. Repeat serum electrolytes ordered. History of resistant hypertension primarily due to fluid overload At this point blood pressure is well controlled. Not been able to tolerate spironolactone. We will continue with amiloride 2.5 mg. In the past he was not able to tolerate higher dose of 5 mg. Keep Metolazone 2.5 mg at night Watch creatinine Orders: Orders Basic Metabolic Panel 3 Months N18.9 - Chronic kidney disease, unspecified Coding Level of Care Code Est Pt Level 4 (84541) Diagnoses CKD (chronic kidney disease) N18.9 Hypokalemia E87.6
--- OUTSIDE RECORDS SUMMARY | 2025-03-20 17:22 | XMS_ITS | Continuity of Care Document ---
Author Organization [facility] Address [address] [place] [address] [address] [place] [address] Phone Care Team Providers Care Generation Technologist Name Role Phone Ricardo Bunch MD Unavailable [...] [place] & [place] [facility], [address], [place], [place], [id number], tel:[phone] VR - [place] - [place] Varicose veins of bilateral lower extremities with [...] 4 Alivia Silva. [address] [place], [address], [place]. tel: [phone] Referring Provider: Fadumo Stewart, [address], [place], [address]. tel:[phone] [facility], [address] [address], [place], [place], [id number], [place] [phone] VR - [place] Chronic venous hypertension (idiopathic) with other complications of bilateral lower extremity 4 Laz Magaña. [address] [place] [address], [address], [place], [place], [id number] , . tel: [phone] Referring Provider: Gómez Treviño, [address] [place] [address] [address], [place], [address] . tel:[phone] Family History Family Member Type Diagnosis Age At Onset No Information Payers Payer name Insurance type Covered republican ID Authoriza tion(s) [employer] Medicare Advantage [id number] Medical Assistance [facility] [id number] Social History Type Description Quantity Date Captured [...]
--- OUTSIDE RECORDS SUMMARY | 2025-03-20 17:22 | XMS_ITS | Encounter Summary ---
Author Organization [facility] Address [address] [place] [address] Care Team Providers Care Health Educator Name Role Phone Smiley Leo MD Primary Care Provider [phone] Reason for Visit * Reason Onset Date Comments Appointment 02/28/2025 Encounter Details Date Type Department Care Team (Late st Contact Info) Description 02/28/2025 Telephone [facility] [address] [phone] Howard Chow MD [address] [place] [address] Diabetes & Endocrinology [place] [phone] Appointment Social History Tobacco Use Types Packs/Day Years Used Date Smoking Tobacco: Former Cigarettes Q uit: 08/07/1986 Smokeless Tobacco: Never Alcohol Use Standard Drinks/Week Comments No 0 (1 standard drink = 0.6 oz pur e alcohol) Sex and Gender Information Value Date Recorded Sex Assigned at Not on file Legal Sex Male 10:25 AM EST Gender Identity Not on file Sexual Orientation Not on file documented as of this encounter Progress Notes * Jean Holt - 02/28/2025 8:45 AM EDT Left message for pt to call back and schedule a follow up appt. documented in this encounter Plan of Treatment Not on file documented as of this encounter Visit Diagnoses Not on filedocumented in this encounter Care Teams Health Educator Relationship Specialty Start Date End Date Smiley Leo MD [address] [place] [id number] PCP - General Pulmonary Disease 05/30/14 documented as of this encounter
--- OUTSIDE RECORDS SUMMARY | 2025-03-20 17:22 | XMS_ITS | Clinical Summary ---
Author Organization [facility] Address [address] [place] [address] Care Team Providers Care Database Marketing Manager Name Role Phone Smiley Leo MD Primary Care Provider [phone] Allergies No known active allergies Medications metolazone (ZAROXOLYN) 2.5 MG tablet Take 2.5 mg by mouth daily. Active ALPRAZolam (XANAX) 0.5 MG tablet Take 0.5 mg by mouth 4 times daily (every 6 hours) as needed. anxiety Active aMILoride (MIDAMOR) 5 MG tablet Take 5 mg by mouth daily. Active carvedilol (COREG) 25 MG tablet Take 25 mg by mouth 2 (two) times a day with meals. Active rosuvastatin (CRESTOR) 40 MG tablet Take 40 mg by mouth daily. Active sacubitril-vals radha (ENTRESTO) 49-51 mg per tablet Take 1 tablet by mouth 2 (two) times a day. Active insulin glargine (Lantus) 100 units/mL injection Inject 72 Units under the skin nightly. Active insulin lispro (HumaLOG MALIK KWIKPEN) 100 UNIT/ML prefilled pen injection Inject 52 Units under the skin 3 (three) times a day before meals. Active furosemide (LASIX) 80 MG tablet Take 80 mg by mouth daily. Active potassium chloride (KLOR-CON M10) 10 MEQ tablet Take 120 mEq by mouth 2 (two) times a day. Active PANTOprazole (PROTONIX) 40 MG EC tablet Take 40 mg by mouth daily. Active clopidogrel (PLAVIX) 75 MG tablet Take 75 mg by mouth daily. Active albuterol (PROVENTIL HFA; VENTOLIN HFA) 108 (90 Base) MCG/ACT inhaler Inhale 2 puffs every 4 (four) hours as needed. Active raNOLazine (raNEXa) 500 MG 12 hr tablet Take 500 mg by mouth twice daily (every 12 hours). Active liraglutide (VICTOZA) 18 MG/3ML prefilled pen injection Inject 1.8 mg under the skin daily. Active warfarin (COUMADIN) 5 MG tablet Take 5 mg by mouth daily at the same time. Active warfarin (COUMADIN) 1 MG tablet Take 1 mg by mouth daily at the same time. Active buPROPion (WELLBUTRIN XL) 150 MG 24 hr tablet Take 150 mg by mouth every morning. Active buPROPion (WELLBUTRIN XL) 300 MG 24 hr tablet Take 300 mg by mouth every morning. Active Social History Tobacco Use Types Packs/Day Years Used Date Smoking Tobacco: Never Assessed OASIS D0700: Social Isolation Answer Da te Recorded Frequency of experiencing loneliness or isolatio n Never 04/26/2024 OASIS A1250: Transportation Answer Date Recorded Lack of Transportation (Medical) No 04/26/2024 Lack of Transportation (Non-Medical) No 04/26/2024 Patient Unable or Declines to Respond No 04/26/2024 Sex and Gender Information Value Date Recorded Sex Assigned at Not on file Legal Sex Male 6:18 PM EDT Gender Identity Not on file Sexual Orientation Not on file Last Filed Vital Signs Vital Sign Reading Time Taken Comments Blood Pressure 138/78 04/26/2024 11:12 AM EDT Pulse 80 04/26/2024 11:12 AM EDT Temperature 36.6 ??C (97.8 ??F) 04/26/2024 11:12 AM E DT Respiratory Rate 17 04/26/2024 11:12 AM EDT Oxygen Saturation 98% 04/26/2024 11:12 AM EDT Inhaled Oxygen Concentration - - Weight - - Height - - Body Mass Index - - Plan of Treatment Health Maintenance Due Date Last Done Comments Hepatitis C Virus Screening 1960 HIV Screening 1973 DTaP/Tdap/Td Vaccines (1 - Tdap) 1979 Colonoscopy 2005 Pneumococcal Vaccines 50+ (1 of 1 - PCV) 2010 Zoster (Shingles) Vaccine (1 of 2) 2010 RSV Vaccine 60 years and old er and Patients (1 - Risk 60-74 years 1-dose series) 2020 Influenza Vaccine 06/28/2024 COVID-19 Vaccine ( - 2023-2 5 season) 2024 Hepatitis B Vaccines Aged Out No long er eligible based on patient's age to complete this topic Insurance [facility] [place] [address] [facility] Care Teams Database Marketing Manager Relationship Specialty Start Date End Date Smiley Leo MD [address] [place] [address] PCP - General 06/26/13
--- OUTSIDE RECORDS SUMMARY | 2025-03-20 17:22 | XMS_ITS | Clinical Summary ---
Author Organization [facility] Address [address] [place] [address] Phone Care Team Providers Care Pattern Chain Builder Name Role Phone Smiley Leo MD Primary Care Provider [phone] Allergies Active Allergy Reactions Criticality Noted Date Comments Amoxicillin Other (see comments) 10/10/2017 Dobutamine Other (see comments) 10/10/2017 Iodinated Contrast Media Other (see comments) 0 03/23/2021 Niacin Other (see comments) 03/23/2021 Niacin Er (Antihyperlipidemic) 06/26 Oxycodone Other (see comments) 03/23/2021 Medications * This document contains information received from the source organization and may not represent a complete record from that organization. raNITIdine (ZANTAC) 150 MG capsule Take 1 capsule by mouth 2 (two) times a day Active albuterol HFA (PROVENTIL HFA;VENTOLIN HFA) 108 (90 Base) MCG/ACT inhaler as needed 8 Active ALPRAZolam (XANAX) 0.5 MG tablet Take 0.5 mg by mouth 3 times a day 1 Active buPROPion XL (WELLBUTRIN XL) 150 MG 24 hr tablet Take 150 mg by mouth at bed time 1 Active buPROPion XL (WELLBUTRIN XL) 300 MG 24 hr tablet Take 300 mg by mouth 1 (one) time each day 1 Active carvedilol (COREG) 25 MG tablet Take 25 mg by mouth 1 (one) time each day 1 Active clopidogrel (PLAVIX) 75 MG tablet Take 75 mg by mouth 1 (one) time each day 1 Active furosemide (LASIX) 80 MG tablet Take 80 mg by mouth 1 (one) time each day 1 Active Lantus 100 UNIT/ML injection 84 Units 1 Active HumaLOG KWIKPEN 100 UNIT/ML solution pen-injector 52 Units 1 Active Insulin Syringe 30G X 04/12 1 ML misc USE TO INJECT INSULIN TWICE DAILY DIRECTED 0 Active liraglutide (Victoza) 18 MG/3ML injection Inject 1.8 pre-filled pen syringe under the skin 1 (one) time each day 0 Active metOLazone (ZAROXOLYN) 2.5 MG tablet 1 Active nitroglycerin (NITROSTAT) 0.4 MG SL tablet as needed Active pantoprazole (PROTONIX) 40 MG EC tablet Take 40 mg by mouth 2 (two) times a day 1 Active ranolazine (RANEXA) 500 MG 12 hr tablet Take 500 mg by mouth 1 (one) time each day 1 Active rosuvastatin (CRESTOR) 40 MG tablet Take 40 mg by mouth 1 (one) time each day 1 Active Entresto 49-51 MG per tablet Take 1 tablet by mouth 2 (two) times a day 1 Active warfarin (COUMADIN) 1 MG tablet Take by mouth 3 Active warfarin (COUMADIN) 5 MG tablet Take 1 tablet by mouth 1 (one) time each day Active nitroglycerin (NITRODUR) 0.4 MG/HR APPLY PATCH TRANSDERMALLY EVERY DAY REMOVE AFTER 12 HOURS 2 Active potassium chloride (KLOR-CON M10) 10 MEQ CR tablet TAKE 12 TABLETS BY MOUTH TWICE DAILY DO NOT CRUSH CHEW OR SPLIT. 2 Active aMILoride (MIDAMOR) 5 MG tablet Take 0.5 tablets (2.5 mg total) by mouth 1 (one) time each day 15 tablet 4 Active Active Problems Problem Noted Date Diagnosed Date Osteoarthritis of left knee joint 05/27/2023 12/13/2023 Chronic kidney disease stage 3 03/24/2021 Malignant hypertensive chronic kidney disease Microalbuminuria 03/24/2021 International normalized ratio above reference r kailash 07/09/2018 Lightheadedness 07/09/2018 Insulin treated type 2 diabetes mellitus 017 Coronary atherosclerosis 06/26/2015 Overview (03/24/2021): ICD-10 Activation ICD-10 Activation Disorder of kidney 06/26/2015 Essential hypertension 06/26/2015 Overview (03/24/2021): ICD-10 Activation ICD-10 Activation Hyperlipidemia 06/26/2015 Polyneuropathy due to diabetes mellitus 06/26/20 15 Overview (03/24/2021): ICD-10 Activation Family History Medical History Relation Comments Diabetes Father Heart disease Father Hypertension Father Stroke Father Cancer Mother Heart disease Mother Hypertension Mother Diabetes Sibling Relation Status Comments Father Mother Sibling Social History Tobacco Use Types Packs/Day Years Used Date Smoking Tobacco: Never Smokeless Tobacco: Never Alcohol Use Standard Drinks/Week Comments No 0 (1 standard drink = 0.6 oz pur e alcohol) Sex and Gender Information Value Date Recorded Sex Assigned at Not on file Legal Sex Male 4:40 PM EST Gender Identity Not on file Sexual Orientation Not on file Last Filed Vital Signs Vital Sign Reading Time Taken Comments Blood Pressure 146/66 06/21/2023 1:56 PM EDT Pulse 90 06/21/2023 1:56 PM EDT Temperature - - Respiratory Rate - - Oxygen Saturation 93% 06/21/2023 1:56 PM EDT Inhaled Oxygen Concentration - - Weight 173 kg (382 lb) 12/14/2022 3:17 PM EST Height 182.9 cm (6') 08/26/2020 12:00 PM EDT Body Mass Index 51.81 08/26/2020 12:00 PM EDT Plan of Treatment Health Maintenance Due Date Last Done Comments Pneumococcal Vaccine: 50+ Years (1 of 2 - PCV) 1979 Colorectal Cancer Screening: Annual FOBT 2009 Colorectal Cancer Screening: Colonoscopy 2009 Colorectal Cancer Screening: Sigmoidoscopy 2009 Diabetes: Ophthalmology Exam 12/26/2020 Diabetes: Pedal Pulse Checked 12/26/2020 Diabetes: Sensory Foot Exam 12/26/2020 Diabetes: Visual Foot Exam 12/26/2020 Diabetes: Hemoglobin A1C 07/15/202304/14/ 023, 03/05/2022, 10/27/2021, Additional history exists Influenza Vaccine (Season Ended) 2025 Hepatitis B Vaccine Aged Out No longe r eligible based on patient's age to complete this topic Procedures Procedure Name Priority Date/Time Associated Diagnosis Comments BLOOD PANEL (HC) Routine 12/19/2020 12:0 0 AM EST from Last 3 Months or Most Recently Relevant to Health Maintenance Results * (ABNORMAL) Blood Panel (12/19/2020 12:00 AM EST) Hemoglobin A1C 7.4(H) <5 % PVNMA 12/19/2020 us Rtama Conversion LAB [id number] LICITED RESULTS Final Result Performing Organization Address City/State/[facility] Co de Phone Number PVNMA from Last 3 Months or Most Recently Relevant to Health Maintenance Insurance [employer] Medicare Care Teams Pattern Chain Builder Relationship Specialty Start Date End Date Smiley Leo MD [address] PCP - General 12/08/20
--- OUTSIDE RECORDS SUMMARY | 2025-03-20 17:22 | XMS_ITS | Encounter Summary ---
Author Organization [facility] Address [address] [place] [address] Phone Care Team Providers Care Rug Dyer Name Role Phone Smiley Leo MD Primary Care Provider [phone] Encounter Details Date Type Department Care Team (Late st Contact Info) Description 02/18/2021 Orders Only [facility] [address] [place] [address] ProviderRossi MD [address] [place] [address] Social History Tobacco Use Types Packs/Day Years Used Date Smoking Tobacco: Never Alcohol Use Standard Drinks/Week Comments No 0 (1 standard drink = 0.6 oz pur e alcohol) Sex and Gender Information Value Date Recorded Sex Assigned at Not on file Legal Sex Male 4:40 PM EST Gender Identity Not on file Sexual Orientation Not on file documented as of this encounter Plan of Treatment Not on file documented as of this encounter Procedures Procedure Name Priority Date/Time Associated Diagnosis Comments EXT RESULT ENTRY Routine 02/18/2021 documented in this encounter Results * EXT RESULT ENTRY (02/18/2021) us Historical Provider LAB BLOOD ORDERABLES Mayte l Result documented in this encounter Visit Diagnoses Not on filedocumented in this encounter Care Teams Rug Dyer Relationship Specialty Start Date End Date Smiley Leo MD [address] [email or web address] [email or web address] [place], [place] PCP - General 12/08/20 documented as of this encounter
--- OUTSIDE RECORDS SUMMARY | 2025-03-20 17:22 | XMS_ITS | Clinical Summary ---
Author Organization [facility] Address [address] [place] [id number] Care Team Providers Care Radiological Defense Officer Name Role Phone Smiley Leo MD Primary Care Provider [phone] Allergies Active Allergy Reactions Criticality Noted Date Comments Amoxicillin 10/10/2017 Other reaction(s): Other (see comments) Dobutamine 10/10/2017 Other reaction(s): Other (see comments) Iodinated Contrast Media 10/10/2017 Other reaction(s): Other (see comments) Niacin Er (Antihyperlipidemic) 06/26/2015 Oxycodone 10/10/2017 Other reaction(s): Other (see comments) Medications Medication Sig Dispensed Refills Start Date End Date Status carvedilol (COREG) 25 MG tablet Take by mouth every morning. 0 05/07/2013 Active rosuvastatin (CRESTOR) tablet 40 mg Take by mouth. 0 05/07/2013 Active furosemide (LASIX) 80 MG tablet Take by mouth every morning. 0 05/07/2013 Active MAGNESIUM OXIDE PO Take 400 mg by mouth daily. 0 Active clopidogrel (PLAVIX) 75 MG tablet Take by mouth. 0 Active ranolazine (RANEXA) 500 MG 12 hr tablet Take 1 tablet (500 mg total) by mouth 2 (two) times a day. 0 Active warfarin (COUMADIN) 1 MG tablet Take by mouth. Takes 9 mg on Tuesdays and Saturdays. Takes 6 mg on all other days 0 05/07/2013 Active buPROPion (WELLBUTRIN XL) 300 MG 24 hr tablet Take by mouth every morning. 0 Active ALPRAZolam (XANAX) 0.5 MG tablet 3 (three) times a day. 1 05/16/2015 Active buPROPion (WELLBUTRIN XL) 150 MG 24 hr tablet every evening. 2 05/05/2015 Active pantoprazole (PROTONIX) 40 MG tablet 0 10/01/2015 Active AMILoride (MIDAMOR) 5 MG tablet Take 0.5 tablets (2.5 mg total) by mouth every morning. 0 07/10/2016 Active warfarin (COUMADIN) 5 MG tablet TK 1 T PO QD 3 05/23/2016 Active nitroglycerin (NITROSTAT) 0.[address] 1 tablet (0.4 mg total) under the tongue every 5 (five) minutes as needed. 0 Active ENTRESTO 49-51 MG per tablet 1 tablet 2 (two) times a day. 6 09/21/2017 Active PROAIR HFA 108 (90 BASE) MCG/ACT inhaler INHALE 2 PUFFS PO Q 6 H PRN 3 01/06/2018 Active Glucagon (Gvoke HypoPen 2-Pack) 1 MG/0.2ML SOAJ Inject 1 mg under the skin as needed (for severe hypoglycemia, if used call 911). 0.4 mL 1 06/26/2021 Active metOLazone (ZAROXOLYN) 2.5 MG tablet 0 01/10/2022 Active Klor-Con M10 10 MEQ tablet TAKE 12 TABLETS BY MOUTH TWICE DAILY DO NOT CRUSH CHEW OR SPLIT. 0 01/19/2022 Active gentamicin (GARAMYCIN) 0.1 % ointment Apply topically daily. 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 Use to test blood sugar daily. 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 300 each 3 12/21/2023 Active insulin glargine (LANTUS) injection 100 units/mLIndication s:Controlled type 2 diabetes mellitus with diabetic nephropathy, with long-term current use of insulin ([facility]) INJECT 68 UNITS UNDER THE SKIN TWICE DAILY 140 mL 1 01/17/2024 Active Insulin Syringe-Needle U-100 (INSULIN SYRINGE 1CC/30GX5/16 ) 30G X 5/16 1 ML MISCIndications:Po niki controlled diabetes mellitus ([facility]) USE TO INJECT 5 TIMES DAILY 200 each 12 04/26/2024 Active Insulin Pen Needle (B-D ULTRAFINE III SHORT PEN) 31G X 8 MM MISCIndications:Co ntrolled type 2 diabetes mellitus with diabetic nephropathy, with long-term current use of insulin ([facility]) USE 5 TIMES DAILY WITH INSULIN PENS 200 each 3 04/26/2024 Active Insulin Lispro, 1 Unit Dial, 100 UNIT/ML SOPNIndications:Co ntrolled type 2 diabetes mellitus with diabetic nephropathy, with long-term current use of insulin ([facility]) ADMINISTER 20 UNITS BEFORE MEALS WITH CARBOHYDRATES 45 mL 1 07/09/2024 Active tirzepatide (Mounjaro) 5 MG/0.5MLIndication s:Controlled type 2 diabetes mellitus with diabetic nephropathy, with long-term current use of insulin ([facility]) Inject 0.5 mL (5 mg total) under the skin every 7 days. 6 mL 3 10/02/2024 Active Active Problems Problem Noted Date Diagnosed Date Right-sided chest pain 07/09/2018 Lightheadedness 07/09/2018 Supratherapeutic INR 07/09/2018 Chronic kidney disease, stage IV (severe) 2017 Controlled type 2 diabetes m ellitus with diabetic nephropathy, with long-term current use of insulin 02/21/2017 Degenerative arthritis of thoracic spine 015 Diabetic polyneuropathy 06/26/2015 Overview: ICD-10 Activation Nephritis and nephropathy, n ot specified as acute or chronic, with other specified pathological lesion in kidney, in diseases classified elsewhere 06/26/2015 Essential hypertension 06/26/2015 Overview: ICD-10 Activation Hyperlipidemia 06/26/2015 Coronary atherosclerosis 06/26/2015 Overview: ICD-10 Activation CRI (chronic renal insufficiency) 06/26/2015 Resolved Problems Problem Noted Date Diagnosed Date Resolved Date Type II or unspecified type diabetes mellitus with other specified manifestations, uncontrolled 06/26/2015 02/21/2017 Social History Tobacco Use Types Packs/Day Years Used Date Smoking Tobacco: Former Cigarettes Q uit: 08/07/1986 Smokeless Tobacco: Never Tobacco Cessation:Counseling Given: Not Answered Alcohol Use Standard Drinks/Week Comments No 0 (1 standard drink = 0.6 oz pur e alcohol) Sex and Gender Information Value Date Recorded Sex Assigned at Male 02/08/2019 10:50 AM EDT Gender Identity Not on file Sexual Orientation Not on file Job Start Date Occupation Industry Not on file Not on file Not on file Last Filed Vital Signs Vital Sign Reading Time Taken Comments Blood Pressure 130/72 10/02/2024 1:56 PM EST Pulse 70 10/02/2024 1:56 PM EST Temperature 36.8 ??C (98.3 ??F) 07/26/2023 6:32 PM ED T Respiratory Rate 18 07/26/2023 6:32 PM EDT Oxygen Saturation 98% 10/02/2024 1:56 PM EST Inhaled Oxygen Concentration - - Weight 148.4 kg (327 lb 3.2 oz) 10/02/2024 1:56 PM EST Height 182.9 cm (6') 10/02/2024 1:56 PM EST Body Mass Index 44.38 10/02/2024 1:56 PM EST Plan of Treatment Health Maintenance Due Date Last Done Comments Hepatitis C Screening 1960 Depression Screening 1972 BMI Counseling 1978 Diabetes: Eye Exam (No Retinopathy) 1978 Diabetes: Foot Exam 1978 Preventative Health Evaluation 1978 DTap / Tdap / Td (1 - Tdap) 1979 Colon Cancer Screening (Colonoscopy) 2005 Shingrix-Zoster Vaccine (1 of 2) 2010 Pneumococcal Vaccine (2 of 2 - PPSV23 or PCV20) 12/20/2016 10/25/2016 Pneumococcal Vaccine (2 of 2 - PPSV23 or PCV20) 12/20/2016 10/25/2016 RSV Adult > 60+ Yrs or (1 - Risk 60-74 years 1-dose series) 2020 Diabetes: Microalbumin Test 04/14/202403/28, 10/27/2021, 08/14/2020, Additional history exists COVID-19 Vaccine ( season) 2024 02/25/2022, 09/27/2021, 03/24/2021, Additional history exists Influenza Vaccine (#1) 2024 09/25/2020 Hemoglobin A1C Due 04/01/2025 10/02/2024, 0 07/03/2024, 12/21/2023, Additional history exists Hepatitis B Vaccines Aged Out No long er eligible based on patient's age to complete this topic RSV Ped < 20 months Aged Out No longe r eligible based on patient's age to complete this topic Advance Directives For more information, please contact: [phone] Documents on File Type Date Recorded 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 Care Teams Radiological Defense Officer Relationship Specialty Start Date End Date Smiley Leo MD [address] [place] [id number] PCP - General Pulmonary Disease 05/30/14
--- OUTSIDE RECORDS SUMMARY | 2025-03-20 17:22 | XMS_ITS | Encounter Summary ---
Author Organization [facility] Address [address] [place] [address] Care Team Providers Care Analyst Geochemical Prospecting Name Role Phone Smiley Leo MD Primary Care Provider [phone] Encounter Details Date Type Department Care Team (Late st Contact Info) Description 08/17/2023 Scanned Document [facility] [address] [facility] [address] [place] [address] Provider, Generic Social History Tobacco Use Types Packs/Day Years Used Date Smoking Tobacco: Never Assessed Sex and Gender Information Value Date Recorded Sex Assigned at Not on file Legal Sex Male 6:18 PM EDT Gender Identity Not on file Sexual Orientation Not on file documented as of this encounter Plan of Treatment Not on file documented as of this encounter Procedures Procedure Name Priority Date/Time Associated Diagnosis Comments HOME CARE SIGNED ORDERS 08/17/2023 documented in this encounter Results * HOME CARE SIGNED ORDERS (08/17/2023) Narrative 08/17/2023 Ordered by an unspecified provider. us Generic Provider HX AMB PROCEDURES NO RESULTS RO UTING Final Result documented in this encounter Visit Diagnoses Not on filedocumented in this encounter Care Teams Analyst Geochemical Prospecting Relationship Specialty Start Date End Date Smiley Leo MD [address] [facility] [place] [address] PCP - General 06/26/13 documented as of this encounter
--- OUTSIDE RECORDS SUMMARY | 2025-03-20 17:22 | XMS_ITS | Clinical Summary ---
Author Organization [facility] [address] Address [address] [place] [address] Phone Care Team Providers Care Copyholder Name Role Phone Smiley Leo MD Primary Care Provider [phone] Allergies Active Allergy Reactions Criticality Noted Date Comments Amoxicillin 10/10/2017 Other reaction(s): Other (see comments) Dobutamine 10/10/2017 Other reaction(s): Other (see comments) Iodinated Contrast Media 10/10/2017 Other reaction(s): Other (see comments) Oxycodone 10/10/2017 Other reaction(s): Other (see comments) Medications lancets lancets 3 (three) times a day. To test blood sugars 4 Active ALPRAZolam (XANAX) 0.5 mg tablet Take 1 tablet (0.5 mg total) by mouth 3 (three) times a day. Max Daily Amount: 1.5 mg 5 Active aMILoride (MIDAMOR) 5 mg tablet Take 0.5 tablets (2.5 mg total) by mouth 1 (one) time each day in the morning. 6 Active UNABLE TO FIND 5 (five) times a day. B-D ULTRAFINE III SHORT PEN 31G X 8 MM MISC. Use with insulin pens 3 Active blood-glucose meter (Accu-Chek Guide Glucose Meter) misc 1 Device by Not Applicable route 3 (three) times a day. To test blood sugar 4 Active buPROPion XL (WELLBUTRIN XL) 150 mg 24 hr tablet Take 1 tablet (150 mg total) by mouth 1 (one) time each day in the evening. 5 Active buPROPion XL (WELLBUTRIN XL) 300 mg 24 hr tablet Take 1 tablet (300 mg total) by mouth 1 (one) time each day in the morning. Active carvediloL (COREG) 25 mg tablet Take 1 tablet (25 mg total) by mouth 1 (one) time each day in the morning. 3 Active clopidogreL (PLAVIX) 75 mg tablet Take 1 tablet (75 mg total) by mouth. Active furosemide (LASIX) 80 mg tablet Take 1 tablet (80 mg total) by mouth 1 (one) time each day in the morning. 3 Active gentamicin (GARAMYCIN) 0.1 % ointment Apply 1 Application topically 1 (one) time each day. 3 Active glucagon (Gvoke HypoPen 1-Pack) 1 mg/0.2 mL auto-injector Inject 1 mg under the skin 1 (one) time each day if needed. (for severe hypoglycemia, if used call 911) 1 Active blood sugar diagnostic (Accu-Chek Guide test strips) test strip 3 (three) times a day if needed. To check blood sugar. 4 Active glucose blood (Blood Glucose Test) test strip Use as instructed 4 Active insulin glargine (LANTUS) 100 unit/mL injection Inject under the skin 2 (two) times a day. 68 units. 3 Active insulin lispro (HumaLOG KwikPen) 100 unit/mL injection pen Inject under the skin 2 (two) times a day before meals. 52 units 3 Active insulin syringe-needle U-100 0.3 mL 30 gauge x 5/16 syringe 5 (five) times a day. 3 Active potassium chloride (Klor-Con 10) 10 mEq CR tablet Take 24 mEq by mouth 1 (one) time each day. 6 Active magnesium oxide (MAG-OX) 400 mg (241.3 elemental magnesium) tablet Take 1 tablet (400 mg total) by mouth 1 (one) time each day. Active metOLazone (ZAROXOLYN) 2.5 mg tablet Take 1 tablet (2.5 mg total) by mouth. 2 Active nitroglycerin (NITRODUR) 0.4 mg/hr Place 1 patch on the skin 1 (one) time each day. REMOVE AFTER 12 HOURS 2 Active nitroglycerin (NITROSTAT) 0.[address] 1 tablet (0.4 mg total) under the tongue every 5 (five) minutes if needed. Active pantoprazole (PROTONIX) 40 mg EC tablet Take 1 tablet (40 mg total) by mouth. 5 Active albuterol HFA (ProAir HFA) 90 mcg/actuation inhaler Inhale 2 puffs every 6 (six) hours if needed. 8 Active ranolazine (RANEXA) 500 mg 12 hr tablet Take 1 tablet (500 mg total) by mouth 2 (two) times a day. Active rosuvastatin (CRESTOR) 40 mg tablet Take 1 tablet (40 mg total) by mouth. 3 Active tirzepatide (Mounjaro) 2.5 mg/0.5 mL pen injector Inject 0.5 mL (2.5 mg total) under the skin 1 (one) time per week. 4 Active warfarin (COUMADIN) 1 mg tablet Take by mouth. Takes 9 mg on Tuesdays and Saturdays. Takes 6 mg on all other days 3 Active warfarin (COUMADIN) 5 mg tablet Take 1 tablet (5 mg total) by mouth. TK 1 T PO QD 6 Active Active Problems Problem Noted Date Diagnosed Date Controlled type 2 diabetes m deloris with diabetic nephropathy, with long-term current use of insulin ([facility] V24, [facility] V28) 01/31/2024 Chronic kidney disease, stag e IV (severe) ([facility] V24, [facility] V28) 07/09/2018 Lightheadedness 07/09/2018 Right-sided chest pain 07/09/2018 Supratherapeutic INR 07/09/2018 Coronary atherosclerosis 06/26/2015 Overview (01/31/2024): ICD-10 Activation CRI (chronic renal insufficiency) 06/26/2015 Degenerative arthritis of thoracic spine 015 Diabetic polyneuropathy ([facility] V24, [facility] V2 8) 06/26/2015 Overview (01/31/2024): ICD-10 Activation Essential hypertension 06/26/2015 Overview (01/31/2024): ICD-10 Activation Hyperlipidemia 06/26/2015 Nephritis and nephropathy 06/26/2015 Encounters Date Type Department Care Team Description 02/28/2025 [facility] [place] [address] [place] [address] Howard Chow MD Appointment 02/07/2025 [facility] [place] [address] [place] [address] Melina Rodriguez PA Appointment from Last 3 Months Surgical History Surgery Date Site/Laterality Comments TOTAL KNEE ARTHROPLASTY PROCEDURE:TOTAL KNEE ARTHROPLASTY Medical History Medical History Date Comments Type II or unspecified type diabetes mellitus with other specified manifestations, uncontrolled DX:Type II or unspecified type diabetes mellitus with other specified manifestations, uncontrolled Polyneuropathy in diabetes(357.2) DX:Polyneuropathy in diabetes(357.2) Nephritis and nephropathy, n ot specified as acute or chronic, with other specified pathological lesion in kidney, in diseases classified elsewhere DX:Nephritis and neph ropathy, not specified as acute or chronic, with other specified pathological lesion in kidney, in diseases classified elsewhere Unspecified essential hypertension DX:Unspecified essential hypertension Pure hypercholesterolemia DX:Pur e hypercholesterolemia Morbid obesity ([facility] V24, [facility] V28) DX:Morbid obesity ([facility]) Coronary atherosclerosis of unspecified type of vessel, [place] or graft DX:Coronary atheroscle rosis of unspecified type of vessel, [place] or graft;COMMENT:s/p stents Back pain DX:Back pain CRI (chronic renal insufficiency) DX:CRI (chronic renal insufficiency) Anticoagulated on Coumadin DX:An ticoagulated on Coumadin;COMMENT:previous PE [place] filter in place DX:Gr [place] filter in place GERD (gastroesophageal reflux disease) DX:GERD (gastroesophageal reflux disease) Generalized OA DX:Generalized O A Edema DX:Edema Sleep apnea DX:Sleep apnea COPD (chronic obstructive pu lmonary disease) ([facility] V24, [facility] V28) DX:COPD (chronic o bstructive pulmonary disease) ([facility]) Social History Tobacco Use Types Packs/Day Years [...] on file Sexual Orientation Not on file Obstetrics History Last Filed Vital Signs Vital Sign Reading Time Taken Comments Blood Pressure 115/70 07/03/2024 2:01 PM EDT Pulse 79 07/03/2024 2:01 PM EDT Temperature - - Respiratory Rate - - Oxygen Saturation - - Inhaled Oxygen Concentration - - Weight 148 kg (327 lb) 07/03/2024 2:01 PM EDT Height 182.9 cm (6') 07/03/2024 2:01 PM EDT Body Mass Index 44.35 07/03/2024 2:01 PM EDT Plan of Treatment Health Maintenance Due Date Last Done Comments Diabetes: Annual Foot Exam 1970 Diabetes: Annual Retina Eye Exam 1970 DTaP,Tdap,and Td Vaccines (1 - Tdap) 1979 Zoster Vaccines (1 of 2) 2010 Colorectal Cancer Screening: Colonoscopy 11/04/2022 Depression Screening 11/04/2022 HIV Screening 11/04/2022 Hepatitis C Screening 11/04/2022 Medicare Annual Wellness Visit 11/04/2022 Social Influencers of Health Screening 11/04/2022 Diabetes: Annual Urine Albumin-Creatinine Ratio (uACR) 04/14/2024 04/14/2023, 04/14/2023, 10/27/2021, Additional history exists COVID-19 Vaccine ( season) 2024 02/25/2022, 09/27/2021, 03/24/2021, Additional history exists Diabetes: Blood Sugar Control Test (HGBA1C) 04/01/2025 10/02/2024, 07/03/2024, 12/21/2023, Additional history exists Influenza Vaccine (Season Ended) 2025 09/25/2020 Diabetes: Annual GFR (Glomerular Filtration Rate) 03/11/2026 03/11/2025, 09/29/2024, 07/26/2023, Additional history exists Hypertension/CHF/CAD Annual BMP Blood Test 03/11/2026 03/11/2025, 09/29/2024, 07/26/2023, Additional history exists Cholesterol Screening (Lipid Panel) 04/14/2028 04/14/2023, 04/14/2023, 05/30/2019, Additional history exists Pneumococcal Vaccine: 50+ Years Completed 04/27/2024, 10/25/2016 Pneumococcal Vaccine: Pediatrics (0 to 5 Years) and At-Risk Patients (6 to 64 Years) Completed 04/27/2024, 10/25/2016 RSV Immunization Adult Patients Completed 04/27/2024 HIB Vaccines Aged Out No longer eligi ble based on patient's age to complete this topic HPV Vaccines Aged Out No longer eligi ble based on patient's age to complete this topic Hepatitis A Vaccines Aged Out No long er eligible based on patient's age to complete this topic Hepatitis B Vaccines Aged Out No long er eligible based on patient's age to complete this topic IPV Vaccines Aged Out No longer eligi ble based on patient's age to complete this topic MMR Vaccines Aged Out No longer eligi ble based on patient's age to complete this topic Meningococcal ACWY Vaccine Aged Out N o longer eligible based on patient's age to complete this topic Meningococcal B Vaccine Aged Out No l onger eligible based on patient's age to complete this topic RSV Immunization Patients Under 20 months Aged Out No longer eligible based on patient's age to complete this topic Varicella Vaccines Aged Out No longer eligible based on patient's age to complete this topic Procedures Procedure Name Priority Date/Time Associated Diagnosis Comments PROTHROMBIN TIME WITH INR Routine 03/13/2025 2:35 PM EDT Chronic atrial fibrillation (CMS/HCC V24, CMS/HCC V28) [facility] (current) use of anticoagulants BASIC METABOLIC PANEL Routine 03/11/2025 8:47 AM EDT Hypopotassemia HEMOGLOBIN A1C Routine 12/21/2023 HM URINE ALBUMIN CREATININE RATIO Routine 04/14/2023 LIPID PANEL Routine 04/14/2023 from Last 3 Months or Most Recently Relevant to Health Maintenance Results * (ABNORMAL) Prothrombin time with INR (03/13/2025 2:35 PM EDT) Protime 42.5(H) 10.5 - 13.3 sec LAB COAGULATION METHOD 03/13/2025 8:11 PM EDT [facility] INR 3.6(H) 0.8 - 1.1 LAB COAGULATION METHOD 03/13/2025 8:11 PM EDT [facility] Blood Venous blood specimen / Unknown Venipuncture / Unknown 03/13/2025 2:35 PM EDT 03/13/2025 2:35 PM EDT Narrative [facility] - 03/13/2025 8:11 PM EDT Std. Therapy ?2.0-3.0 INR High Dose Therapy 3.0-4.5 INR Ranges may vary depending on clinical indications and protocol. Zena Wright MD LAB BLOOD ORDERABLES Final Resul t [facility] [address] [place] [address], [place] [phone] * (ABNORMAL) Basic metabolic panel (03/11/2025 8:47 AM EDT) Sodium 139 135 - 145 mmol/L LAB CHEMISTRY METHOD 03/11/2025 11:32 AM EDT [facility] Potassium 3.2(L) 3.5 - 5.1 mmol/L LAB CHEMISTRY METHOD 03/11/2025 11:32 AM EDT [facility] Chloride 94(L) 98 - 107 mmol/L LAB CHEMISTRY METHOD 03/11/2025 11:32 AM EDT [facility] CO2 35(H) 24 - 32 mmol/L LAB CHEMISTRY METHOD 03/11/2025 11:32 AM EDT [facility] Anion Gap 10 5 - 14 LAB CHEMISTRY METHOD 03/11/2025 11:32 AM EDT [facility] Glucose 101(H) 70 - 99 mg/dL LAB CHEMISTRY METHOD 03/11/2025 11:32 AM EDT [facility] BUN 27(H) 9 - 20 mg/dL LAB CHEMISTRY METHOD 03/11/2025 11:32 AM EDT [facility] Creatinine 1.80(H) 0.70 - 1.30 mg/dL LAB CHEMISTRY METHOD 03/11/2025 11:32 AM EDT [facility] eGFR 42(L) >=60 mL/min/1. 73m2 LAB CHEMISTRY METHOD 03/11/2025 11:32 AM EDT [facility] Comment:Calculation based on the??Chronic Kidney Disease Epidemiology Collaboration (CKD-EPI) equation refit??without adjustment for race. BUN/Creatinine Ratio 15.0 12.0 - 20.0 LAB CHEMISTRY METHOD 03/11/2025 11:32 AM EDT [facility] Calcium 9.6 8.4 - 10.2 mg/dL LAB CHEMISTRY METHOD 03/11/2025 11:32 AM EDT [facility] Blood Venous blood specimen / Unknown Venipuncture / Unknown 03/11/2025 8:47 AM EDT 03/11/2025 8:47 AM EDT Erasmo Meyer MD LAB BLOOD ORDERABL ES Final Result [facility] [address] [place] [address], * (ABNORMAL) Hemoglobin A1c (12/21/2023) Hemoglobin A1C 7.0(A) <=5.7 % Blood Venous blood specimen / Unknown Historical Provider LAB BLOOD ORDERABLES Mayte l Result * HM Urine Albumin Creatinine Ratio (04/14/2023) HM Urine Albumin Creatinine Ratio abstracted Historical Provider HEALTH MAINTENANCE Final Result * (ABNORMAL) Lipid panel (04/14/2023) Triglycerides 207(A) <=150 mg/dL Cholesterol 116 0 - 200 mg/dL HDL 26(A) 32 - 70 mg/dL LDL Cholesterol 49(A) 501 - 130 mg/dL Blood Venous blood specimen / Unknown Result [facility] Historical Provider LAB BLOOD ORDERABLES Mayte l Result from Last 3 Months or Most Recently Relevant to Health Maintenance Insurance [place]ICAID - [place] [employer] MEDICARE Care Teams Copyholder Relationship Specialty Start Date End Date Smiley Leo MD [address] [place] [address] PCP - General Pulmonary Disease 05/30/14
== END 2025-03-20 14:46 | disposition home or self-care (01) ==
LOC: HO.HKAE 14:29
PROVIDERS: PCP Internal Medicine Pulmonary Disease; Visit Provider Internal Medicine Hypertension Specialist
DX: N18.9 Chronic kidney disease, unspecified (principal); E87.6 Hypokalemia
CPT/HCPCS: 99214

== ENCOUNTER → 2025-03-20 14:28 | Outpatient (BNVA) | payer MEDICARE, OTHER, SELFPAY | PROVIDERS: PCP Internal Medicine Pulmonary Disease; Visit Provider Internal Medicine Hypertension Specialist | DX: E11.22 Type 2 diabetes mellitus with diabetic chronic kidney disease (principal); I12.9 Hypertensive chronic kidney disease with stage 1 through stage 4 chronic kidney disease, or unspecified chronic kidney disease; N18.32 Chronic kidney disease, stage 3b; E87.6 Hypokalemia; Z79.899 Other long term (current) drug therapy | CPT/HCPCS: 99212 ==

== ENCOUNTER 2025-07-10 14:56 | Outpatient (AMB) | payer OTHER, SELFPAY ==
[2025-07-10 14:50] VITALS: BP 110/62; PULSE 69; O2SAT 96; BMI 41.4
--- NOTE | 2025-07-10 14:50 | HO.NEPHOV ---
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: No Accompanied by: Self / Same As Patient Allergies amoxicillin Allergy (Unknown, Verified 07/10/25 14:52) Unknown dobutamine Allergy (Unknown, Verified 07/10/25 14:52) Unknown niacin Allergy (Unknown, Verified 07/10/25 14:52) Unknown oxycodone Allergy (Unknown, Verified 07/10/25 14:52) Unknown lodinated contrast media Allergy (Unknown, Uncoded 03/20/25 14:36) Unknown Medication List - Last Reconciled 07/10/25 by Erasmo Meyer MD alprazolam mg PO amiloride 2.5 mg PO DAILY bupropion HCl XL 150 mg PO QAM bupropion HCl XL 300 mg PO DAILY carvedilol 25 mg PO DAILY clopidogrel 75 mg PO DAILY furosemide 80 mg PO DAILY insulin glargine (Lantus U-100 Insulin) 22 units subcut BID PRN insulin lispro (Humalog KwikPen (U-100) Insulin) 22 units subcut PRN insulin syringe-needle U-100 As directed metolazone 2.5 mg PO DAILY nitroglycerin 0.4 mg/hr transdermal pantoprazole 40 mg PO BID potassium chloride ER (Klor-Con) 10 mEq PO DAILY ranolazine ER 500 mg PO DAILY rosuvastatin 40 mg PO DAILY sacubitril-valsartan 49-51 mg (Entresto) 1 tab PO BID tirzepatide (Mounjaro) 7.5 mg subcut QWEEK warfarin 5 mg PO DAILY warfarin 1 mg PO DAILY HPI Comments Details: Dean is a pleasant 63-year-old man with a history of longstanding diabetes mellitus hypertension obesity. He is severe hypokalemia and he is on high dose of diuretics. Since his last visit he has lost about 20 lb. Mounjaro added in February 2024 He has lost > 30 lbs Still on Lasix 80 mg and Metolazone 2.5 mg QD KCL 12 tabs a day Here for follow up Maunjaro has been increased to 7.5 Wt is down to 318 lbs( 348 last yr) 07/10/25 The patient is a 64-year-old male presenting for management of CKD and hypokalemia including hypertension and chronic kidney disease, as well as follow-up on a healed ulcer on the second toe. The patient had an ulcer on the second toe that persisted for three months before seeking treatment at a wound center, where it healed after three visits. He was advised against using a Band-Aid on the ulcer as it kept the area too moist. The patient's potassium level was noted to be 3.6, which is an improvement from previous levels. He has been experiencing weight loss, currently weighing 305 pounds, and reports his blood pressure as very good, with a recent reading of 110/62 mmHg. The patient is currently on 80 mg of Lasix twice a day and experiences dyspnea on exertion. He reports that his kidney function is stable with a creatinine clearance of 42 mL/min. [facility] Family History Mother Cancer Heart disease Hypertension Father Hypertension Diabetes Stroke Heart disease Physical Exam Vital Signs: Last Vital Signs Pulse 69 07/10/25 14:50 BP 110/62 07/10/25 14:50 Pulse Ox 96 07/10/25 14:50 Oxygen Delivery Method Room Air 07/10/25 14:50 BMI result Body Mass Index 41.4 Const General: comfortable Nutritional Appearance: well nourished Orientation/consciousness: patient oriented x3 HEENT Head: No normal to inspection Mouth: moist mucous membranes Neck Neck: Yes supple and Yes no JVD Resp Auscultation: clear to auscultation bilaterally and no rales Cardio Jugular venous distension: no JVD Palpation: no palpable S3 and no palpable S4 GI Palpation (GI): Soft to palpation and nontender Percussion: No Fluid wave present General: Yes no CVA tenderness Back/Spine/Pelvis Back: no CVA tenderness Skin General skin exam: no rashes or lesions noted Neuro General: patient oriented x3 Extrem General: No clubbing, Yes edema and Yes other (Leg ulcers) Results Reviewed Results Reviewed: 05/29/25 Cr 1.8 K 3.6 Assessment & Plan Assessment & Plan (1) CKD (chronic kidney disease): Code(s): N18.9 - Chronic kidney disease, unspecified Category: Medical (2) Hypokalemia: Code(s): E87.6 - Hypokalemia Category: Medical Plan Dean has CKD 3B in the setting of longstanding hypertension diabetes medicine obesity. Serum creatinine has been stable around baseline of 1.4-1.8. Goal is to slow the progression of the kidney disease Continue to avoid nephrotoxic agents including NSAIDs. s/p fluid overload. He is currently on Lasix 80 mg along with metolazone 2.5 mg. Due to high dose of diuretics he has had significant hypokalemia requiring potassium supplementation 12 tablets twice a day. Repeat serum electrolytes ordered. History of resistant hypertension primarily due to fluid overload At this point blood pressure is well controlled. Not been able to tolerate spironolactone. Discontinue amiloride 2.5 mg since BP is rather low and he is still loosing weight In the past he was not able to tolerate higher dose of 5 mg. Keep Metolazone 2.5 mg at night Watch creatinine Orders: Orders Basic Metabolic Panel 3 Months E87.6 - Hypokalemia, N18.9 - Chronic kidney disease, unspecified Coding Level of Care Code Est Pt Level 4 (65624) Diagnoses CKD (chronic kidney disease) N18.9 Hypokalemia E87.6
--- OUTSIDE RECORDS SUMMARY | 2025-07-10 15:02 | XMS_ITS | Clinical Summary ---
Author Organization [facility] Address [address] [place] [id number] Care Team Providers Care Recruiting Operations Consultant Name Role Phone Smiley Leo MD Primary Care Provider [phone] Allergies Active Allergy Reactions Criticality Noted Date [...] long-term current use of insulin ([facility]) 1 Device by Does not apply route 3 (three) times a day. Use to test blood sugar daily. 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 300 each 3 12/21/2023 Active insulin glargine (LANTUS) injection 100 units/mLIndication s:Controlled type 2 diabetes mellitus with diabetic nephropathy, with long-term current use of insulin ([facility]) INJECT 68 UNITS UNDER THE SKIN TWICE DAILY 140 mL 1 01/17/2024 Active Insulin Syringe-Needle U-100 (INSULIN SYRINGE 1CC/30GX5/16 ) 30G X 5/16 1 ML MISCIndications:Po niki controlled diabetes mellitus ([facility]) USE TO INJECT 5 TIMES DAILY 200 each 12 04/26/2024 Active Insulin Pen Needle (B-D ULTRAFINE III SHORT PEN) 31G X 8 MM MISCIndications:Co ntrolled type 2 diabetes mellitus with diabetic nephropathy, with long-term current use of insulin ([facility]) USE 5 TIMES DAILY WITH INSULIN PENS 200 each 3 04/26/2024 Active Insulin Lispro, 1 Unit Dial, 100 UNIT/ML SOPNIndications:Co ntrolled type 2 diabetes mellitus with diabetic nephropathy, with long-term current use of insulin ([facility]) ADMINISTER 20 UNITS BEFORE MEALS WITH CARBOHYDRATES 45 mL 1 07/09/2024 Active tirzepatide (Mounjaro) 5 MG/0.5MLIndication s:Controlled type 2 diabetes mellitus with diabetic nephropathy, with long-term current use of insulin ([facility]) Inject 0.5 mL (5 mg total) [...] 70 10/02/2024 1:56 PM EST Temperature 36.8 C (98.3 F) 07/26/2023 6:32 PM EDT Respiratory Rate 18 07/26/2023 6:32 PM EDT [...] 2024 02/25/2022, 09/27/2021, 03/24/2021, Additional history exists Hemoglobin A1C Due 04/01/2025 10/02/2024, 0 07/03/2024, 12/21/2023, Additional history exists Influenza Vaccine (#1) 2025 09/25/2020 Hepatitis B Vaccines Aged Out No long er eligible based on patient's age to complete this topic RSV Ped < 20 months Aged Out No longe r eligible based on patient's age to complete this topic Advance Directives For more information, please contact: [phone] Documents on File Type Date Recorded 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 Care Teams Recruiting Operations Consultant Relationship Specialty Start Date End Date Smiley Leo MD [address] [place] [address] PCP - General Pulmonary Disease 05/30/14
--- OUTSIDE RECORDS SUMMARY | 2025-07-10 15:02 | XMS_ITS | Clinical Summary ---
Author Organization [facility] Address [address] [place] [id number] Care Team Providers Care Aircraft Powerplant Repairer Name Role Phone Smiley Leo MD Primary Care Provider [phone] Allergies No known active allergies Medications metolazone [...] 80 04/26/2024 11:12 AM EDT Temperature 36.6 C (97.8 F) 04/26/2024 11:12 AM EDT Respiratory Rate 17 04/26/2024 11:12 AM EDT [...] - Risk 60-74 years 1-dose series) 2020 COVID-19 Vaccine ( - 2023-2 5 season) 2024 Influenza Vaccine 06/28/2025 Hepatitis B Vaccines Aged Out No long er eligible based on patient's age to complete this topic Insurance [employer] MEDICARE [facility] Care Teams Aircraft Powerplant Repairer Relationship Specialty Start Date End Date Smiley Leo MD [address] [place] [address] [place] [address] PCP - General 06/26/13
--- OUTSIDE RECORDS SUMMARY | 2025-07-10 15:03 | XMS_ITS | Clinical Summary ---
Author Organization [facility] [address] Address [address] [place] [address] Phone Care Team Providers Care Candy Vendor Name Role Phone Smiley Leo MD Primary Care Provider [phone] Allergies Active Allergy Reactions Criticality Noted Date [...] by mouth 3 (three) times a day. 5 Active aMILoride (MIDAMOR) 5 mg tablet [...] HFA) 90 mcg/actuation inhaler Inhale 2 puffs by mouth every 6 (six) hours if needed. 8 [...] Active Problems Problem Noted Date Diagnosed Date Type 2 diabetes mellitus wit h foot ulcer ([facility] V24, [facility] V28) 04/16/2025 Chronic venous hypertension (idiopathic) with ulcer and inflammation of left lower extremity ([facility] V24, [facility] V28) 04/16/2025 Non-pressure chronic ulcer l eft lower leg, limited to breakdown skin ([facility] V24, [facility] V28) 04/16/2025 Controlled type 2 diabetes m ellitus with diabetic nephropathy, with long-term current use of insulin ([facility] V24, [facility] V28) 01/31/2024 Chronic kidney disease, stag e IV (severe) ([facility] V24, [facility] V28) 07/09/2018 Lightheadedness 07/09/2018 Right-sided chest pain 07/09/2018 Supratherapeutic INR 07/09/2018 Coronary atherosclerosis 06/26/2015 Overview (01/31/2024): ICD-10 Activation CRI (chronic renal insufficiency) 06/26/2015 Degenerative arthritis of thoracic spine 015 Diabetic polyneuropathy ([facility] V24, [facility] V2 8) 06/26/2015 Overview (01/31/2024): ICD-10 Activation Essential hypertension 06/26/2015 Overview (01/31/2024): ICD-10 Activation Hyperlipidemia 06/26/2015 Nephritis and nephropathy 06/26/2015 Encounters Date Type Department Care Team Description 05/08/2025 3:00 PM EDT Office Visit [facility] [place] [address] [place] [phone] 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 Non-pressure chronic ulcer left lower leg, limited to breakdown skin ([facility] V24, [facility] V28) (Primary Dx); Chronic venous hypertension (idiopathic) with ulcer and inflammation of left lower extremity ([facility] V24, [facility] V28) 04/25/2025 3:00 PM EDT Office Visit [facility] [place] [address] [place] [phone] Fadumo Noel NP Type 2 diabetes mellitus with foot ulcer, unspecified whether salvage determiner insulin use ([facility] V24, [facility] V28) (Primary Dx); Chronic venous hypertension (idiopathic) with ulcer and inflammation of left lower extremity ([facility] V24, [facility] V28); Non-pressure chronic ulcer left lower leg, limited to breakdown skin ([facility] V24, [facility]/H[facility] V28) 04/16/2025 2:15 PM EDT Office Visit [facility] [place] [address] [place] [phone] Froonjian, Fadumo C, JOINERS SUPERVISOR Type 2 diabetes mellitus with foot ulcer, unspecified whether salvage determiner insulin use ([facility] V24, [facility] V28) (Primary Dx); Chronic venous hypertension (idiopathic) with ulcer and inflammation of left lower extremity ([facility] V24, [facility] V28); Non-pressure chronic ulcer left lower leg, limited to breakdown skin ([facility] V24, [facility] V28) from Last 3 Months Surgical History Surgery [...] Pure hypercholesterolemia DX:Pur e hypercholesterolemia Morbid obesity ([facility] V24, [facility] V28) DX:Morbid obesity ([facility]) Coronary atherosclerosis of unspecified type of vessel, [place] or graft DX:Coronary atheroscle rosis of unspecified type of vessel, [place] or graft;COMMENT:s/p stents Back pain DX:Back pain CRI (chronic renal insufficiency) DX:CRI (chronic renal insufficiency) Anticoagulated on Coumadin DX:An ticoagulated on Coumadin;COMMENT:previous PE [place] filter in place DX:Gr eenfield filter in place GERD (gastroesophageal reflux disease) DX:GERD (gastroesophageal reflux disease) Generalized OA DX:Generalized O A Edema DX:Edema Sleep apnea DX:Sleep apnea COPD (chronic obstructive pu lmonary disease) ([facility] V24, [facility] V28) DX:COPD (chronic o bstructive pulmonary disease) ([facility]) Social History Tobacco Use Types Packs/Day Years [...] Sign Reading Time Taken Comments Blood Pressure 137/82 05/08/2025 3:00 PM EDT Pulse 70 05/08/2025 3:00 PM EDT Temperature 36.8 C (98.2 F) 05/08/2025 3:00 PM EDT Respiratory Rate 16 05/08/2025 3:00 PM EDT Oxygen Saturation 97% 05/08/2025 3:00 PM EDT Inhaled Oxygen Concentration - - Weight 148 kg (327 lb) 07/03/2024 2:01 PM EDT Height 182.9 cm (6') 07/03/2024 2:01 PM EDT Body Mass Index 44.35 07/03/2024 2:01 PM EDT Plan of Treatment Health Maintenance Due Date Last Done Comments Diabetes: Annual Foot Exam 1970 Diabetes: Annual Retina Eye Exam 1970 DTaP,Tdap,and Td Vaccines (1 - Tdap) 1979 Zoster Vaccines (1 of 2) 1979 Colorectal Cancer Screening: Colonoscopy 11/04/2022 HIV Screening 11/04/2022 Hepatitis C Screening 11/04/2022 Medicare Annual Wellness Visit 11/04/2022 Social Influencers of Health Screening 11/04/2022 Diabetes: Annual Urine Albumin-Creatinine Ratio (uACR) 04/14/2024 04/14/2023, 04/14/2023, 10/27/2021, Additional history exists COVID-19 Vaccine ( season) 2024 02/25/2022, 09/27/2021, 03/24/2021, Additional history exists Depression Screening 11/28/2024 Influenza Vaccine (#1) 2025 09/25/2020 Diabetes: Blood Sugar Control Test (HGBA1C) 11/29/2025 05/29/2025, 10/02/2024, 07/03/2024, Additional history exists Diabetes: Annual GFR (Glomerular Filtration Rate) 05/29/2026 05/29/2025, 03/11/2025, 09/29/2024, Additional history exists Hypertension/CHF/CAD Annual BMP Blood Test 05/29/2026 05/29/2025, 03/11/2025, 09/29/2024, Additional history exists Cholesterol Screening (Lipid Panel) 05/29/2030 05/29/2025, 04/14/2023, 04/14/2023, Additional history exists Pneumococcal Vaccine: 50+ Years Completed 04/27/2024, 10/25/2016 RSV Immunization Adult Patients [...] on patient's age to complete this topic Goals Goal Patient Goal Type Associated Problems Recent Progress Patient-Stated? Author Decrease Wound Volume by X% by date (in notes) Care Plan Impaired Tissue No Sandra Castelan RN Patient and Caregiver Understand Wound Care Education Care Plan Impaired Tissue No Sandra Castelan RN Wound volume breakdown reduced by X% by week 4 Care Plan Impaired Tissue No Sandra Castelan RN Wound volume breakdown reduced by X% by week 8 Care Plan Impaired Tissue No Sandra Castelan RN Wound volume breakdown reduced by X% by week 12 Care Plan Impaired Tissue On track( 025 12:40 PM EDT) No Sandra Castelan RN Note: 80% by week 12 wound healing, 50% by week 4 Quit using tobacco (cigarettes, smokeless, etc) Care Plan Education needed on impact of smoking on wound No Sandra Castelan RN Reduce tobacco use (cigarettes, smokeless, etc) Care Plan Education needed on impact of smoking on wound No Sandra Castelan RN Decrease Wound Volume by X% by date (in notes) Care Plan Education needed on impact of smoking on wound No Sandra Castelan RN Patient and Caregiver Understand Wound Care Education Care Plan Education needed related to ulceration/compr omised skin integrity. No Sandra Castelan RN Decrease Wound Volume by X% by date (in notes) Care Plan Impaired Tissue Improving(03/2025 1:22 PM EDT) Moni Davenport RN Note: Wound to heal by 07/02/25 Patient and Caregiver Understand Wound Care Education Care Plan Impaired Tissue No Moni Coy RN Wound volume breakdown reduced by X% by week 4 Care Plan Impaired Tissue Moni Davenport RN Wound volume breakdown reduced by X% by week 8 Care Plan Impaired Tissue Moni Davenport RN Wound volume breakdown reduced by X% by week 12 Care Plan Impaired Tissue Moni Davenport RN Quit using tobacco (cigarettes, smokeless, etc) Care Plan Education needed on impact of smoking on wound Moni Davenport RN Reduce tobacco use (cigarettes, smokeless, etc) Care Plan Education needed on impact of smoking on wound No Moni Coy RN Decrease Wound Volume by X% by date (in notes) Care Plan Education needed on impact of smoking on wound Moni Davenport RN Patient and Caregiver Understand Wound Care Education Care Plan Education needed related to ulceration/compr omised skin integrity. Moni Davenport RN Procedures Procedure Name Priority Date/Time Associated Diagnosis Comments CBC WITH AUTO DIFFERENTIAL Routine 05/29/2025 2:51 PM EDT Chronic kidney disease, unspecified Heart disease, unspecified Heart failure, unspecified ([facility] V24, [facility] V28) Essential hypertension, malignant Diabetes mellitus ([facility] V24, CMS/HCC V28) Senile arthritis Avitaminosis D Obstructive sleep apnea (adult) (pediatric) VITAMIN D 25 HYDROXY Routine 05/29/2025 2:51 PM EDT Chronic kidney disease, unspecified Heart disease, unspecified Heart failure, unspecified (CMS/HCC V24, [facility] V28) Essential hypertension, malignant Diabetes mellitus ([facility] V24, CMS/HCC V28) Senile arthritis Avitaminosis D Obstructive sleep apnea (adult) (pediatric) VITAMIN B12 Routine 05/29/2025 2:51 PM EDT Chronic kidney disease, unspecified Heart disease, unspecified Heart failure, unspecified (CMS/HCC V24, CMS/HCC V28) Essential hypertension, malignant Diabetes mellitus (CMS/HCC V24, CMS/HCC V28) Senile arthritis Avitaminosis D Obstructive sleep apnea (adult) (pediatric) THYROID STIMULATING HORMONE Routine 05/29/2025 2:51 PM EDT Chronic kidney disease, unspecified Heart disease, unspecified Heart failure, unspecified (CMS/HCC V24, CMS/HCC V28) Essential hypertension, malignant Diabetes mellitus (CMS/HCC V24, CMS/HCC V28) Senile arthritis Avitaminosis D Obstructive sleep apnea (adult) (pediatric) PROSTATE SPECIFIC ANTIGEN SCREEN Routine 05/29/2025 2:51 PM EDT Chronic kidney disease, unspecified Heart disease, unspecified Heart failure, unspecified (CMS/HCC V24, CMS/HCC V28) Essential hypertension, malignant Diabetes mellitus (CMS/HCC V24, CMS/HCC V28) Senile arthritis Avitaminosis D Obstructive sleep apnea (adult) (pediatric) HEMOGLOBIN A1C Routine 05/29/2025 2:51 PM EDT Chronic kidney disease, unspecified Heart disease, unspecified Heart failure, unspecified (CMS/HCC V24, CMS/HCC V28) Essential hypertension, malignant Diabetes mellitus (CMS/HCC V24, CMS/HCC V28) Senile arthritis Avitaminosis D Obstructive sleep apnea (adult) (pediatric) GLUCOSE, FASTING Routine 05/29/2025 2:51 PM EDT Chronic kidney disease, unspecified Heart disease, unspecified Heart failure, unspecified (CMS/HCC V24, CMS/HCC V28) Essential hypertension, malignant Diabetes mellitus (CMS/HCC V24, CMS/HCC V28) Senile arthritis Avitaminosis D Obstructive sleep apnea (adult) (pediatric) CBC AND DIFFERENTIAL Routine 05/29/2025 2:51 PM EDT Chronic kidney disease, unspecified Heart disease, unspecified Heart failure, unspecified (CMS/HCC V24, CMS/HCC V28) Essential hypertension, malignant Diabetes mellitus (CMS/HCC V24, CMS/HCC V28) Senile arthritis Avitaminosis D Obstructive sleep apnea (adult) (pediatric) LIPID PANEL WITH REFLEX TO DIRECT LDL Routine 05/29/2025 2:51 PM EDT Chronic kidney disease, unspecified Heart disease, unspecified Heart failure, unspecified (CMS/HCC V24, CMS/HCC V28) Essential hypertension, malignant Diabetes mellitus (CMS/HCC V24, CMS/HCC V28) Senile arthritis Avitaminosis D Obstructive sleep apnea (adult) (pediatric) HEPATIC FUNCTION PANEL Routine 05/29/2025 2:51 PM EDT Chronic kidney disease, unspecified Heart disease, unspecified Heart failure, unspecified (CMS/HCC V24, CMS/HCC V28) Essential hypertension, malignant Diabetes mellitus (CMS/HCC V24, CMS/HCC V28) Senile arthritis Avitaminosis D Obstructive sleep apnea (adult) (pediatric) BASIC METABOLIC PANEL Routine 05/29/2025 2:51 PM EDT Chronic kidney disease, unspecified PROTHROMBIN TIME WITH INR Routine 05/29/2025 2:51 PM EDT Chronic atrial fibrillation (CMS/HCC V24, CMS/HCC V28) skilled nursing (current) use of anticoagulants HM URINE ALBUMIN CREATININE RATIO Routine 04/14/2023 from Last 3 Months or Most Recently Relevant to Health Maintenance Results * Prostate specific antigen screen (05/29/2025 2:51 PM EDT) PSA 0.40 0.00 - 4.00 ng/mL LAB CHEMISTRY METHOD 05/29/2025 7:36 PM EDT [facility] Blood Venous blood specimen / Unknown Venipuncture / Unknown 05/29/2025 2:51 PM EDT 05/29/2025 2:51 PM EDT Narrative [facility] - 05/29/2025 7:36 PM EDT The testing method is an immunoenzymatic assay manufactured by [employer] and performed on the [employer] DxI 800. [place] [employer] Prostate-Specific Antigen Best Practice Statement: 2009 Update (Pg.21) Table 1: Age Specific Reference Ranges for Serum PSA* Age Range Americans Americans Whites 40 to 49 yr 0 to 2.0 ng/ml 0 to 2.0 ng/ml 0 to 2.5 ng/ml 50 to 59 yr 0 to 3.0 ng/ml 0 to 4.0 ng/ml 0 to 3.5 ng/ml 60 to 69 yr 0 to 4.0 ng/ml 0 to 4.5 ng/ml 0 to 4.5 ng/ml 70 to 79 yr 0 to 5.0 ng/ml 0 to 5.5 ng/ml 0 to 6.5 ng/ml *Parish Diaz. and Lauren Dave.:Age specific reference ranges for serum prostate specific antigen. Urol Clin [place]. 24: 339, 1997 us Smiley Leo MD LAB BLOOD ORDERABLES Final Res ult [facility] [address] [place] [address], [place] [phone] * (ABNORMAL) Lipid panel with reflex to direct LDL (05/29/2025 2:51 PM EDT) Cholesterol 121 0 - 200 mg/dL LAB CHEMISTRY METHOD 05/29/2025 7:24 PM EDT [facility] Triglycerides 203(H) <150 mg/dL LAB CHEMISTRY METHOD 05/29/2025 7:24 PM EDT [facility] HDL 28(L) 32 - 70 mg/dL LAB CHEMISTRY METHOD 05/29/2025 7:24 PM EDT [facility] LDL Calculated 52 50 - 130 mg/dL LAB CHEMISTRY METHOD 05/29/2025 7:24 PM EDT [facility] VLDL Cholesterol Lior 40.6 mg/dL LAB CHEMISTRY METHOD 05/29/2025 7:24 PM EDT [facility] Comment:No established refer ence range. Blood Venous blood specimen / Unknown Venipuncture / Unknown 05/29/2025 2:51 PM EDT 05/29/2025 2:51 PM EDT us Smiley Leo MD LAB BLOOD ORDERABLES Final Res ult [facility] [address] [place] [address], [place] [phone] * (ABNORMAL) CBC auto differential (05/29/2025 2:51 PM EDT) WBC 10.6(H) 4.0 - 10.5 K/mcL LAB HEMETOLOGY METHOD 05/29/2025 7:03 PM EDT [facility] RBC 4.83 4.70 - 6.00 M/mcL LAB HEMETOLOGY METHOD 05/29/2025 7:03 PM EDT [facility] Hemoglobin 13.9 13.5 - 18.0 g/dL LAB HEMETOLOGY METHOD 05/29/2025 7:03 PM EDT [facility] Hematocrit 41.6 40.0 - 54.0 % LAB HEMETOLOGY METHOD 05/29/2025 7:03 PM EDT [facility] MCV 86.2 78.0 - 100.0 FL LAB HEMETOLOGY METHOD 05/29/2025 7:03 PM EDT [facility] MCH 28.7 25.0 - 33.0 pcg LAB HEMETOLOGY METHOD 05/29/2025 7:03 PM EDT [facility] MCHC 33.3 32.0 - 36.0 g/dL LAB HEMETOLOGY METHOD 05/29/2025 7:03 PM EDT [facility] RDW 15.2 12.1 - 17.7 % LAB HEMETOLOGY METHOD 05/29/2025 7:03 PM EDT [facility] Platelets 227 150 - 450 K/mcL LAB HEMETOLOGY METHOD 05/29/2025 7:03 PM EDT [facility] MPV 8.0 7.4 - 11.4 FL LAB HEMETOLOGY METHOD 05/29/2025 7:03 PM EDT [facility] Neutrophils Relative 57.9 44.0 - 74.0 % LAB HEMETOLOGY METHOD 05/29/2025 7:03 PM EDT [facility] Lymphocytes Relative 31.9 20.0 - 48.0 % LAB HEMETOLOGY METHOD 05/29[facility]2025 7:[facility] Monocytes Relative 9.0 2.0 - 12.0 % LAB HEMETOLOGY METHOD 05/29/2025 7:03 PM [facility] Eosinophils Relative 0.7 0.0 - 6.0 % LAB HEMETOLOGY METHOD 05/29/2025 7:03 PM EDT [facility] Basophils Relative 0.5 0.0 - 2.0 % LAB HEMETOLOGY METHOD 05/29/2025 7:03 PM [facility] Neutrophils Absolute 6.20 1.80 - 7.80 K/mcL LAB HEMETOLOGY METHOD 05/29/2025 7:03 PM EDT [facility] Lymphocytes Absolute 3.40(H) 1.00 - 3.20 K/mcL LAB HEMETOLOGY METHOD 05/29/2025 7:03 PM EDT [facility] Monocytes Absolute 1.00(H) 0.00 - 0.80 K/mcL LAB HEMETOLOGY METHOD 05/29/2025 7:03 PM EDT [facility] Eosinophils Absolute 0.10 0.00 - 0.50 K/mcL LAB HEMETOLOGY METHOD 05/29/2025 7:03 PM EDT [facility] Basophils Absolute 0.10 0.00 - 0.20 K/mcL LAB HEMETOLOGY METHOD 05/29/2025 7:03 PM EDT [facility] Blood Venous blood specimen / Unknown Venipuncture / Unknown 05/29/2025 2:51 PM EDT 05/29/2025 2:51 PM EDT Smiley Leo MD LAB BLOOD ORDERABLES Final Res ult Performing Organization Address City/[facility]/ZIP Co de Phone Number [facility] [address] [place] [address], [place] [phone] * (ABNORMAL) Vitamin D 25 hydroxy (05/29/2025 2:51 PM EDT) Vit D, 25-Hydroxy 27.4(L) 30.0 - 100.0 ng/mL LAB CHEMISTRY METHOD 05/29/2025 7:46 PM EDT [facility] Blood Venous blood specimen / Unknown Venipuncture / Unknown 05/29/2025 2:51 PM EDT 05/29/2025 2:51 PM EDT Narrative [facility] - 05/29/2025 7:46 PM EDT Vitamin D Reference Range ng/ml Deficiency <10 Insufficiency 10-30 Sufficiency 30-100 Toxicity >100 Smiley Leo MD LAB BLOOD ORDERABLES Final Res ult Performing Organization Address City/[facility]/ZIP Co de Phone Number [facility] [address] [place] [address], [place] [phone] * (ABNORMAL) Prothrombin time with INR (05/29/2025 2:51 PM EDT) Protime 45.0(H) 10.5 - 13.3 sec LAB COAGULATION METHOD 05/29/2025 7:26 PM EDT [facility] INR 3.9(H) 0.8 - 1.1 LAB COAGULATION METHOD 05/29/2025 7:26 PM EDT [facility] Blood Venous blood specimen / Unknown Venipuncture / Unknown 05/29/2025 2:51 PM EDT 05/29/2025 2:51 PM EDT Narrative [facility] - 05/29/2025 7:26 PM EDT Std. Therapy 2.0-3.0 INR High Dose Therapy 3.0-4.5 INR Ranges may vary depending on clinical indications and protocol. Zena Wright MD LAB BLOOD ORDERABLES Final Resul t [facility] [address] [place] [address], [place] [phone] * Thyroid stimulating hormone (05/29/2025 2:51 PM EDT) TSH 1.21 0.45 - 5.33 mcIU/mL LAB CHEMISTRY METHOD 05/29/2025 7:46 PM EDT [facility] Blood Venous blood specimen / Unknown Venipuncture / Unknown 05/29/2025 2:51 PM EDT 05/29/2025 2:51 PM EDT Smiley Leo MD LAB BLOOD ORDERABLES Final Res ult [facility] [address] [place] [address], [place] [phone] * (ABNORMAL) Hemoglobin A1c (05/29/2025 2:51 PM EDT) Hemoglobin A1C 6.4(H) <5.7 % LAB CHEMISTRY METHOD 05/30/2025 7:39 AM EDT [facility] Mean Bld Glu Estim. 137 mg/dL LAB CHEMISTRY METHOD 05/30/2025 7:39 AM EDT [facility] Blood Venous blood specimen / Unknown Venipuncture / Unknown 05/29/2025 2:51 PM EDT 05/29/2025 2:51 PM EDT Narrative [facility] - 05/30/2025 7:39 AM EDT ADA Guidelines: Increased risk Diabetes Mellitus A1C 5.7 - 6.4% and Fasting Blood Glucose 100 - 125 mg/dl Diabetes Mellitus: A1C >6.5% and Fasting Blood Glucose >125 mg/dl us Smiley Leo MD LAB BLOOD ORDERABLES Final Res ult [facility] [address] [place] [address], [place] [phone] * Glucose, fasting (05/29/2025 2:51 PM EDT) Glucose, Fasting 73 70 - 99 mg/dL LAB CHEMISTRY METHOD 05/29/2025 7:24 PM EDT [facility] Blood Venous blood specimen / Unknown Venipuncture / Unknown 05/29/2025 2:51 PM EDT 05/29/2025 2:51 PM EDT us Smiley Leo MD LAB BLOOD ORDERABLES Final Res ult Performing Organization Address [facility]/ZIP Co de Phone Number [facility] [address] [place] [address], [place] [phone] * Vitamin B12 (05/29/2025 2:51 PM EDT) Vitamin B-12 234 180 - 914 pcg/mL LAB CHEMISTRY METHOD 05/29/2025 7:46 PM EDT [facility] Blood Venous blood specimen / Unknown Venipuncture / Unknown 05/29/2025 2:51 PM EDT 05/29/2025 2:51 PM EDT us Smiley Leo MD LAB BLOOD ORDERABLES Final Res ult [facility] [address] [place] [address], [place] [phone] * Hepatic function panel (05/29/2025 2:51 PM EDT) ALT (SGPT) 14 7 - 52 unit/L LAB CHEMISTRY METHOD 05/29/2025 7:24 PM EDT [facility] AST (SGOT) 16 5 - 40 unit/L LAB CHEMISTRY METHOD 05/29/2025 7:24 PM EDT [facility] Alkaline Phosphatase 48 34 - 104 unit/L LAB CHEMISTRY METHOD 05/29/2025 7:24 PM EDT [facility] Bilirubin, Direct 0.1 0.0 - 0.2 mg/dL LAB CHEMISTRY METHOD 05/29/2025 7:24 PM EDT [facility] Total Bilirubin 0.5 0.3 - 1.0 mg/dL LAB CHEMISTRY METHOD 05/29/2025 7:24 PM EDT [facility] Total Protein 7.0 6.4 - 8.5 g/dL LAB CHEMISTRY METHOD 05/29/2025 7:24 PM EDT [facility] Albumin 3.9 3.5 - 5.0 g/dL LAB CHEMISTRY METHOD 05/29/2025 7:24 PM EDT [facility] Globulin, Total 3.1 2.3 - 3.5 g/dL LAB CHEMISTRY METHOD 05/29/2025 7:24 PM EDT [facility] A/G Ratio 1.3 LAB CHEMISTRY METHOD 05/29/2025 7:24 PM EDT [facility] Blood Venous blood specimen / Unknown Venipuncture / Unknown 05/29/2025 2:51 PM EDT 05/29/2025 2:51 PM EDT us Smiley Leo MD LAB BLOOD ORDERABLES Final Res ult [facility] [address] [place] [address], [place] [phone] * (ABNORMAL) Basic metabolic panel (05/29/2025 2:51 PM EDT) Sodium 141 135 - 145 mmol/L LAB CHEMISTRY METHOD 05/29/2025 7:24 PM EDT [facility] Potassium 3.6 3.5 - 5.1 mmol/L LAB CHEMISTRY METHOD 05/29/2025 7:24 PM EDT [facility] Chloride 99 98 - 107 mmol/L LAB CHEMISTRY METHOD 05/29/2025 7:24 PM EDT [facility] CO2 32 24 - 32 mmol/L LAB CHEMISTRY METHOD 05/29/2025 7:24 PM EDT [facility] Anion Gap 10 5 - 14 LAB CHEMISTRY METHOD 05/29/2025 7:24 PM EDT [facility] Glucose 73 70 - 99 mg/dL LAB CHEMISTRY METHOD 05/29/2025 7:24 PM EDT [facility] BUN 24(H) 9 - 20 mg/dL LAB CHEMISTRY METHOD 05/29/2025 7:24 PM EDT [facility] Creatinine 1.80(H) 0.70 - 1.30 mg/dL LAB CHEMISTRY METHOD 05/29/2025 7:24 PM EDT [facility] eGFR 42(L) >=60 mL/min/1. 73m2 LAB CHEMISTRY METHOD 05/29/2025 7:24 PM EDT [facility] Comment:Calculation based on the Chronic Kidney Disease Epidemiology Collaboration (CKD-EPI) equation refit without adjustment for race. BUN/Creatinine Ratio 13.3 12.0 - 20.0 LAB CHEMISTRY METHOD 05/29/2025 7:24 PM EDT [facility] Calcium 9.2 8.4 - 10.2 mg/dL LAB CHEMISTRY METHOD 05/29/2025 7:24 PM EDT [facility] Blood Venous blood specimen / Unknown Venipuncture / Unknown 05/29/2025 2:51 PM EDT 05/29/2025 2:51 PM EDT Erasmo Meyer MD LAB BLOOD ORDERABL ES Final Result [facility] [address] [place] [address], [place] [phone] * Urine Albumin Creatinine Ratio (04/14/2023) Urine Albumin Creatinine Ratio abstracted Historical Provider HEALTH MAINTENANCE Final Result from Last 3 Months or Most Recently Relevant to Health Maintenance Additional Health Concerns Active Problems Noted Date Diagnosed Date Impaired Tissue 04/01/2025 Education needed on impact of smoking on wound 0 04/01/2025 Education needed related to ulceration/compromised skin integrity. 04/01/2025 Impaired Tissue 04/01/2025 Education needed on impact of smoking on wound 0 04/01/2025 Education needed related to ulceration/compromised skin integrity. 04/01/2025 Insurance [employer] MEDICARE [place] MEDICARE Care Teams Candy Vendor Relationship Specialty Start Date End Date Smiley Leo MD [address] [place] [address] PCP - General Pulmonary Disease 05/30/14
--- OUTSIDE RECORDS SUMMARY | 2025-07-10 15:03 | XMS_ITS ---
Author Name [facility] Organization Unknown Results Test Name/Text Value Interpretation Date Range Source PT TIME PPP 36.0 sec Above high normal 03/30/2024 10.5 - 13 .3 [facility] INR PPP 3.1 Above high normal 03/30/2024 0.8 - 1.1 C [facility] INR PPP 2.8 Above high normal 12/22/2023 0.8 - 1.1 C [facility] PT TIME PPP 32.8 sec Above high normal 12/22/2023 10.5 - 13 .3 [facility] CREAT SERPL [facility] 1.4 mg/dL Above high normal 12/22/2023 0.7 - 1.3 [facility] Glomerular filtration rate/1.73 sq M. predicted 56.0 Below low normal 12/22/2023 60 - [facility] Hgb A1c MFr Bld HPLC 7.0 % Above high normal 12/22/2023 - 5.7 [facility] BUN [facility] 18.0 mg/dL Normal 12/22/2023 9 - 20 [facility] SODIUM SERPL SCNC 140.0 mmol/L Normal 12/22/2023 135 - 14 5 [facility] POTASSIUM SERPL SCNC 3.3 mmol/L Below low normal 12/22/2023 3.5 - 5.1 [facility] HCO3 SER SCNC 36.0 mmol/L Above high normal 12/22/2023 24 - 32 [facility] ANION GAP SERPL [facility] 7.0 mmol/L Normal 12/22/2023 5 - 14 [facility] CHLORIDE SERPL SCNC 97.0 mmol/L Below low normal 12/22/2023 98 - 107 [facility] PT TIME PPP 36.6 sec Above high normal 11/11/2023 10.5 - 13 .3 [facility] INR PPP 3.0 Above high normal 11/11/2023 0.8 - 1.1 C [facility] History of Medication Use Medication Directions Dispensed Refills Start Date End Date [facility] Mounjaro 7.5 mg/0.5 mL subcutaneous pen injector Inject 0.5 mL every week by subcutaneous route. 02/05/2025 active tirzepatide (Mounjaro) 5 MG/0.5ML Inject 0.5 mL (5 mg total) under the skin every 7 days. 04/25/2024 active MOUNJARO 10mg/0.5mL Pre-Filled Pen Solution for Injection 03/20/2024 active blood-glucose meter (Accu-Chek Guide Glucose Meter) misc 1 Device by Not Applicable route 3 (three) times a day. To test blood sugar 12/10/2023 active blood-glucose meter (Accu-Chek Guide Glucose Meter) misc 1 Device by Not Applicable route 3 (three) times a day. To test blood sugar 12/10/2023 active tirzepatide (Mounjaro) 2.5 MG/0.5ML Inject 0.5 mL (2.5 mg total) under the skin once a week. 12/08/2023 04/25/2024 aborted tirzepatide (Mounjaro) 2.5 mg/0.5 mL pen injector Inject 0.5 mL (2.5 mg total) under the skin 1 (one) time per week. 12/08/2023 active tirzepatide (Mounjaro) 2.5 mg/0.5 mL pen injector Inject 0.5 mL (2.5 mg total) under the skin 1 (one) time per week. 12/08/2023 active Semaglutide,0.25 or 0.5MG/DOS, (Ozempic, 0.25 or 0.5 MG/DOSE,) 2 MG/3ML SOPN Inject 0.75 mL (0.5 mg total) under the skin once a week. 12/07/2023 active insulin lispro (HumaLOG KwikPen) 100 unit/mL injection pen Inject under the skin 2 (two) times a day before meals. 52 units 09/20/2023 active insulin lispro (HumaLOG KwikPen) 100 unit/mL injection pen Inject under the skin 2 (two) times a day before meals. 52 units 09/20/2023 active gentamicin 0.1 % topical ointment Apply topically daily. 08/17/2023 active gentamicin (GARAMYCIN) 0.1 % ointment Apply topically daily. 08/17/2023 active gentamicin (GARAMYCIN) 0.1 % ointment Apply 1 Application topically 1 (one) time each day. 08/17/2023 active gentamicin (GARAMYCIN) 0.1 % ointment Apply 1 Application topically 1 (one) time each day. 08/17/2023 active liraglutide (Victoza) 18 MG/3ML injection Inject 1.8 mg under the skin daily. 06/27/2023 12/07/2023 aborted insulin glargine (LANTUS) 100 unit/mL injection Inject under the skin 2 (two) times a day. 68 units. 06/27/2023 active insulin glargine (LANTUS) 100 unit/mL injection Inject under the skin 2 (two) times a day. 68 units. 06/27/2023 active insulin glargine (LANTUS) injection 100 units/mL INJECT 68 UNITS UNDER THE SKIN TWICE DAILY 06/27/2023 active Kenalog 40 mg/mL suspension for injection Take 1 mL by injection route. 05/27/2023 active Marcaine (PF) 0.5 % (5 mg/mL) injection solution Take 4 mL by injection route. 05/27/2023 active Nitroglycerin 0.4mg Sublingual Tablet 05/06/2023 active Nitroglycerin 0.4mg/hr Transdermal Patch 05/06/2023 active Kenalog 10 mg/mL suspension for injection Take 2 mL by injection route. 05/04/2023 active Accu-Chek Softclix Lancets lancets Use as instructed to test blood sugar 3 times daily. 12/22/2022 active lancets lancets 3 (three) times a day. To test blood sugars 12/22/2022 active lancets lancets 3 (three) times a day. To test blood sugars 12/22/2022 active nitroglycerin 0.4 mg/hr transdermal 24 hour patch APPLY PATCH TRANSDERMALLY EVERY DAY REMOVE AFTER 12 HOURS 10/08/2022 active nitroglycerin (NITRODUR) 0.4 mg/hr Place 1 patch on the skin 1 (one) time each day. REMOVE AFTER 12 HOURS 10/08/2022 active nitroglycerin (NITRODUR) 0.4 mg/hr Place 1 patch on the skin 1 (one) time each day. REMOVE AFTER 12 HOURS 10/08/2022 active Klor-Con M10 mEq tablet,extended release TAKE 12 TABLETS BY MOUTH TWICE DAILY DO NOT CRUSH CHEW OR SPLIT. 01/19/2022 active Klor-Con M10 10 MEQ tablet TAKE 12 TABLETS BY MOUTH TWICE DAILY DO NOT CRUSH CHEW OR SPLIT. 01/19/2022 active metOLazone (ZAROXOLYN) 2.5 mg tablet Take 1 tablet (2.5 mg total) by mouth. 01/10/2022 active metOLazone (ZAROXOLYN) 2.5 mg tablet Take 1 tablet (2.5 mg total) by mouth. 01/10/2022 active metOLazone (ZAROXOLYN) 2.5 MG tablet 01/10/2022 active Alprazolam 0.5mg Tablet 08/21/2021 active Amiloride Hydrochloride 5mg Tablet 08/21/2021 active Nitroglycerin 0.4mg Sublingual Tablet 08/21/2021 active Gvoke HypoPen 1-Pack 1 mg/0.2 mL subcutaneous auto-injector Inject 1 mg under the skin as needed (for severe hypoglycemia, if used call 911). 06/26/2021 active glucagon (Gvoke HypoPen 1-Pack) 1 mg/0.2 mL auto-injector Inject 1 mg under the skin 1 (one) time each day if needed. (for severe hypoglycemia, if used call 911) 06/26/2021 active glucagon (Gvoke HypoPen 1-Pack) 1 mg/0.2 mL auto-injector Inject 1 mg under the skin 1 (one) time each day if needed. (for severe hypoglycemia, if used call 911) 06/26/2021 active Accu-Chek Softclix Lancets lancets Use as instructed to test blood sugar 3 times daily. 06/19/2018 active ProAir HFA 90 mcg/actuation aerosol inhaler INHALE 2 PUFFS PO Q 6 H PRN 01/06/2018 active albuterol HFA (ProAir HFA) 90 mcg/actuation inhaler Inhale 2 puffs every 6 (six) hours if needed. 01/06/2018 active albuterol HFA (ProAir HFA) 90 mcg/actuation inhaler Inhale 2 puffs by mouth every 6 (six) hours if needed. 01/06/2018 active ENTRESTO 49-51 MG per tablet 1 tablet 2 (two) times a day. 09/21/2017 active KLOR-CON 10 10 MEQ tablet Take 24 mEq by mouth daily. 07/14/2016 active potassium chloride (Klor-Con 10) 10 mEq CR tablet Take 24 mEq by mouth 1 (one) time each day. 07/14/2016 active potassium chloride (Klor-Con 10) 10 mEq CR tablet Take 24 mEq by mouth 1 (one) time each day. 07/14/2016 active aMILoride (MIDAMOR) 5 mg tablet Take 0.5 tablets (2.5 mg total) by mouth 1 (one) time each day in the morning. 07/10/2016 active aMILoride (MIDAMOR) 5 mg tablet Take 0.5 tablets (2.5 mg total) by mouth 1 (one) time each day in the morning. 07/10/2016 active AMILoride (MIDAMOR) 5 MG tablet Take 0.5 tablets (2.5 mg total) by mouth every morning. 07/10/2016 active warfarin (COUMADIN) 5 mg tablet Take 1 tablet (5 mg total) by mouth. TK 1 T PO QD 05/23/2016 active warfarin (COUMADIN) 5 mg tablet Take 1 tablet (5 mg total) by mouth. TK 1 T PO QD 05/23/2016 active warfarin (COUMADIN) 5 MG tablet TK 1 T PO QD 05/23/2016 active Ranexa 500MG Tablet Extended Release 12 Hour 05/21/2016 active pantoprazole (PROTONIX) 40 mg EC tablet Take 1 tablet (40 mg total) by mouth. 10/01/2015 active pantoprazole (PROTONIX) 40 mg EC tablet Take 1 tablet (40 mg total) by mouth. 10/01/2015 active pantoprazole (PROTONIX) 40 MG tablet 10/01/2015 active pantoprazole (PROTONIX) 40 MG tablet 10/01/2015 active ALPRAZolam (XANAX) 0.5 mg tablet Take 1 tablet (0.5 mg total) by mouth 3 (three) times a day. Max Daily Amount: 1.5 mg 05/16/2015 active ALPRAZolam (XANAX) 0.5 mg tablet Take 1 tablet (0.5 mg total) by mouth 3 (three) times a day. 05/16/2015 active buPROPion (WELLBUTRIN XL) 150 MG 24 hr tablet every evening. 05/05/2015 activ e buPROPion (WELLBUTRIN XL) 150 MG 24 hr tablet every evening. 05/05/2015 activ e buPROPion XL (WELLBUTRIN XL) 150 mg 24 hr tablet Take 1 tablet (150 mg total) by mouth 1 (one) time each day in the evening. 05/05/2015 active buPROPion XL (WELLBUTRIN XL) 150 mg 24 hr tablet Take 1 tablet (150 mg total) by mouth 1 (one) time each day in the evening. 05/05/2015 active carvedilol (COREG) 25 MG tablet Take by mouth every morning. 05/07/2013 active carvediloL (COREG) 25 mg tablet Take 1 tablet (25 mg total) by mouth 1 (one) time each day in the morning. 05/07/2013 active carvediloL (COREG) 25 mg tablet Take 1 tablet (25 mg total) by mouth 1 (one) time each day in the morning. 05/07/2013 active furosemide (LASIX) 80 mg tablet Take 1 tablet (80 mg total) by mouth 1 (one) time each day in the morning. 05/07/2013 active furosemide (LASIX) 80 mg tablet Take 1 tablet (80 mg total) by mouth 1 (one) time each day in the morning. 05/07/2013 active furosemide (LASIX) 80 MG tablet Take by mouth every morning. 05/07/2013 active rosuvastatin (CRESTOR) 40 mg tablet Take 1 tablet (40 mg total) by mouth. 05/07/2013 active rosuvastatin (CRESTOR) 40 mg tablet Take 1 tablet (40 mg total) by mouth. 05/07/2013 active warfarin (COUMADIN) 1 mg tablet Take by mouth. Takes 9 mg on Tuesdays and Saturdays. Takes 6 mg on all other days 05/07/2013 active warfarin (COUMADIN) 1 mg tablet Take by mouth. Takes 9 mg on Tuesdays and Saturdays. Takes 6 mg on all other days 05/07/2013 active warfarin (COUMADIN) 1 MG tablet Take by mouth. Takes 9 mg on Tuesdays and Saturdays. Takes 6 mg on all other days 05/07/2013 active Entresto 24mg-26mg tablet 10/10/2012 active lidocaine (PF) 100 mg/5 mL (2 %) injection syringe active Kenalog 40 mg/mL suspension for injection active Mounjaro 7.5 mg/0.5 mL subcutaneous pen injector active Accu-Chek Guide test strips USE TO TEST BLOOD SUGAR THREE TIMES DAILY DIRECTED active alprazolam 0.5 mg tablet TAKE 1 TABLET BY MOUTH THREE TIMES DAILY active amiloride 5 mg tablet TAKE 1/2 TABLET BY MOUTH EVERY DAY active amiloride 5 mg tablet Take 0.5 tablets (2.5 mg total) by mouth every morning. active amoxicillin 500 mg capsule TAKE 1 CAPSULE BY MOUTH EVERY 8 HOURS active amoxicillin 500 mg tablet TAKE 1 TABLET BY MOUTH EVERY 8 HOURS FOR 7 DAYS BEST WITH FOOD active bupropion HCl XL 150 mg 24 hr tablet, extended release TAKE 1 TABLET BY MOUTH EVERY NIGHT AT BEDTIME active bupropion HCl XL 150 mg 24 hr tablet, extended release TAKE 1 TABLET BY MOUTH EVERY NIGHT AT BEDTIME active bupropion HCl XL 300 mg 24 hr tablet, extended release TAKE 1 TABLET BY MOUTH EVERY DAY active carvedilol 25 mg tablet TAKE 1 TABLET BY MOUTH EVERY DAY active carvedilol 25 mg tablet TAKE 1 TABLET BY MOUTH EVERY DAY active cephalexin 500 mg capsule TAKE ONE CAPSULE BY MOUTH THREE TIMES A DAY FOR ONE WEEK active clopidogrel 75 mg tablet TAKE 1 TABLET BY MOUTH DAILY active clopidogrel 75 mg tablet TAKE 1 TABLET BY MOUTH DAILY active Entresto 49 mg-51 mg tablet TAKE 1 TABLET BY MOUTH TWICE DAILY active Entresto 49 mg-51 mg tablet TAKE 1 TABLET BY MOUTH TWICE DAILY active furosemide 80 mg tablet TAKE 1 TABLET BY MOUTH EVERY DAY active ibuprofen 800 mg tablet active insulin lispro (U-100) 100 unit/mL subcutaneous pen ADMINISTER 20 UNITS BEFORE MEALS WITH CARBOHYDRATES active Lantus Solostar U-100 Insulin 100 unit/mL (3 mL) subcutaneous pen ADMINISTER 74 UNITS UNDER THE SKIN TWICE DAILY active Lantus U-100 Insulin 100 unit/mL subcutaneous solution INJECT 84 UNITS UNDER THE SKIN TWICE DAILY. active Lantus U-100 Insulin 100 unit/mL subcutaneous solution INJECT 68 UNITS UNDER THE SKIN TWICE DAILY active metolazone 2.5 mg tablet active metolazone 2.5 mg tablet active Mounjaro 2.5 mg/0.5 mL subcutaneous pen injector INJECT 2.5 MG UNDER THE SKIN ONE DAY A WEEK active Mounjaro 5 mg/0.5 mL subcutaneous pen injector ADMINISTER 5 MG UNDER THE SKIN EVERY 7 DAYS active nitroglycerin 0.[address] 1 tablet (0.4 mg total) under the tongue every 5 (five) minutes as needed. active oxycodone-acetamino phen 5 mg-325 mg tablet TAKE 1 TABLET BY MOUTH EVERY 6 HOURS NEEDED PAIN active pantoprazole 40 mg tablet,delayed release TAKE 1 TABLET BY MOUTH TWICE DAILY active potassium chloride ER 10 mEq tablet,extended release TAKE 12 TABLETS BY MOUTH TWO TIMES A DAY active ranolazine ER 500 mg tablet,extended release,12 hr TAKE 1 TABLET BY MOUTH EVERY DAY active ranolazine ER 500 mg tablet,extended release,12 hr TAKE 1 TABLET BY MOUTH EVERY DAY active rosuvastatin 40 mg tablet TAKE 1 TABLET BY MOUTH EVERY DAY active SSD 1 % topical cream APPLY TOPICALLY TO THE AFFECTED AREA DAILY active warfarin 1 mg tablet TAKE 1 TO 2 TABLETS BY MOUTH EVERY DAY DIRECTED active warfarin 5 mg tablet TAKE 1 TABLET BY MOUTH EVERY DAY active buPROPion (WELLBUTRIN XL) 150 MG 24 hr tablet Take 150 mg by mouth every morning. active buPROPion XL (WELLBUTRIN XL) 300 mg 24 hr tablet Take 1 tablet (300 mg total) by mouth 1 (one) time each day in the morning. active buPROPion XL (WELLBUTRIN XL) 300 mg 24 hr tablet Take 1 tablet (300 mg total) by mouth 1 (one) time each day in the morning. active clopidogrel (PLAVIX) 75 MG tablet Take 75 mg by mouth daily. active clopidogreL (PLAVIX) 75 mg tablet Take 1 tablet (75 mg total) by mouth. active clopidogreL (PLAVIX) 75 mg tablet Take 1 tablet (75 mg total) by mouth. active insulin glargine (Lantus) 100 units/mL injection Inject 72 Units under the skin nightly. active liraglutide (VICTOZA) 18 MG/3ML prefilled pen injection Inject 1.8 mg under the skin daily. active magnesium oxide (MAG-OX) 400 mg (241.3 elemental magnesium) tablet Take 1 tablet (400 mg total) by mouth 1 (one) time each day. active magnesium oxide (MAG-OX) 400 mg (241.3 elemental magnesium) tablet Take 1 tablet (400 mg total) by mouth 1 (one) time each day. active nitroglycerin (NITROSTAT) 0.[address] 1 tablet (0.4 mg total) under the tongue every 5 (five) minutes if needed. active nitroglycerin (NITROSTAT) 0.[address] 1 tablet (0.4 mg total) under the tongue every 5 (five) minutes if needed. active nitroglycerin (NITROSTAT) 0.[address] 1 tablet (0.4 mg total) under the tongue every 5 (five) minutes as needed. active PANTOprazole (PROTONIX) 40 MG EC tablet Take 40 mg by mouth daily. active ranolazine (RANEXA) 500 mg 12 hr tablet Take 1 tablet (500 mg total) by mouth 2 (two) times a day. active ranolazine (RANEXA) 500 mg 12 hr tablet Take 1 tablet (500 mg total) by mouth 2 (two) times a day. active ranolazine (RANEXA) 500 MG 12 hr tablet Take 1 tablet (500 mg total) by mouth 2 (two) times a day. active sacubitril-valsarta n (ENTRESTO) 49-51 mg per tablet Take 1 tablet by mouth 2 (two) times a day. active Allergies Allergen Reaction Severity Comment Documented Date Source Statu s OXYCODONE Other reaction(s): Other (see comments) 10/10/2017 [facility] active NIACIN ER 06/26/2015 [facility] active AMOXICILLIN Other reaction(s): Other (see comments) [facility] DOBUTAMINE Other reaction(s): Other (see comments) [facility] Other reaction(s): Other (see comments) [facility] DYES ENS_[facility] Problems Problem Status Onset Date Problem Type Date of Resolution Source Nephritis and nephropathy, not specified as acute or chronic, with other specified pathological lesion in kidney, in diseases classified elsewhere active 2015-05-30 0 ProblemAct [facility] Coronary atherosclerosis active 2015-05-30 0 [facility] Chronic venous hypertension (idiopathic) with ulcer and inflammation of left lower extremity (CMS/HCC V24, CMS/HCC V28) active 2025-03-29 0 ProblemAct [facility] Non-pressure chronic ulcer left lower leg, limited to breakdown skin ([facility] V24, [facility] V28) active 2025-03-29 0 ProblemAct [facility] Essential hypertension active 2015-05-30 0 ProblemAct [facility] Nephritis and nephropathy active 2015-05-30 0 ProblemAct [facility] Lightheadedness active 2018-06-28 2 ProblemAct [facility] Type 2 diabetes mellitus with foot ulcer ([facility] V24, [facility] V28) active 2025-03-29 0 ProblemAct [facility] Controlled type 2 diabetes mellitus with diabetic nephropathy, with long-term current use of insulin ([facility] V24, [facility] V28) active 5 ProblemAct [facility] Diabetic polyneuropathy ([facility] V24, [facility] V28) active 2015-05-30 0 ProblemAct [facility] Supratherapeutic INR active 2018-06-28 2 ProblemAct [facility] CRI (chronic renal insufficiency) active 2015-05-30 0 ProblemAct [facility] Degenerative arthritis of thoracic spine active 2015-05-30 0 ProblemAct [facility] Chronic kidney disease, stage IV (severe) ([facility] V24, [facility] V28) active 2018-06-28 2 ProblemAct [facility] Right-sided chest pain active 2018-06-28 2 ProblemAct [facility] Hyperlipidemia active 2015-05-30 0 ProblemAct [facility] Chronic kidney disease stage 4 active 2018-06-28 2 ProblemAct E[facility] Thoracic arthritis active 2015-05-30 0 ProblemAct [facility] International normalized ratio above reference range active 2018-06-28 2 ProblemAct [facility] Kidney disease active 2015-05-30 0 ProblemAct [facility] Hyperlipidemia active 2015-05-30 0 ProblemAct [facility] Right sided chest pain active 2018-06-28 2 ProblemAct [facility] Renal disorder due to type 2 diabetes mellitus active 2017-01-27 7 ProblemAct [facility] Coronary atherosclerosis active 2015-05-30 0 ProblemAct [facility] Essential hypertension active 2015-05-30 0 ProblemAct [facility] Polyneuropathy due to diabetes mellitus active 2015-05-30 0 ProblemAct [facility] Essential hypertension active 2015-05-30 0 ProblemAct [facility] Polyneuropathy due to diabetes mellitus active 2015-05-30 0 ProblemAct [facility] Lightheadedness active 2018-06-28 2 ProblemAct [facility] Chronic renal insufficiency active 2015-05-30 0 ProblemAct [facility] Ulcer - Non-pressure/diabetic /venous stasis of LEFT heel / midfoot lmt to brkdwn skin active 7 EncounterDiagnosisAct ENS_PODCRCT [id number] - Edema, generalized active 7 EncounterDiagnosisAct ENS_P[facility]CRCT Ulcer - Non-pressure/diabetic /venous stasis of LEFT toe(s) limited to breakdown of skin active 1 ProblemAct ENS_[facility] Contusion of right great toe with damage to nail, initial encounter active 8 ProblemAct E[facility] Contusion of left lesser toe(s) with damage to nail, initial encounter active 2020-02-28 2 ProblemAct E[facility] Contusion of left lesser toe(s) with damage to nail, subsequent encounter active 2020-02-28 9 ProblemAct E[facility] Venous insufficiency stasis dermatitis - Veins active 7 EncounterDiagnosisAct ENS_[facility] Type 2 diabetes mellitus with foot ulcer active 2020-07-29 8 ProblemAct [facility] Cellulitis of right toe, paronychia active 2024-02-28 3 ProblemAct [facility] Pain in right toe(s) active 8 ProblemAct [facility] Contusion of left great toe without damage to nail, initial encounter active 2021-03-28 2 ProblemAct [facility] INGROWING NAIL active 2012-09-28 3 ProblemAct E[facility] Pain in left toe(s) active 2020-05-29 9 ProblemAct E[facility] Ingrowing nail active 8 ProblemAct E[facility] Peroneal tendinitis, left leg active 9 ProblemAct E[facility] CONTUSION OF TOE active 2012-09-28 3 ProblemAct E[facility] Onychogryphosis -Nail active 2016-04-29 4 ProblemAct E[facility] Absent pedal pulses active 9 ProblemAct E[facility] Ulcer - Non-pressure/diabetic /venous stasis of RIGHT toe(s) limited to breakdown of skin active 2020-07-29 8 ProblemAct E[facility] Contusion of right great toe with damage to nail, sequela active 2020-07-29 8 ProblemAct ENS_PODCRCT Equinus,Tailor bunion, acquired pes cavus, plantar flex met, LEFT other acquired deformities active 2016-04-29 4 ProblemAct ENS_[facility] Activity, walking, marching and hiking active 2020-02-28 9 ProblemAct ENS_[facility] Dystrophia unguium active 2019-04-28 4 ProblemAct E[facility] Ulcer - Non-pressure/diabetic /venous stasis of LEFT lower leg (NOT CALF) limited to breakdown of skin active 7 EncounterDiagnosisAct ENS_PODCRCT Type 2 diabetes mellitus with diabetic polyneuropathy active 2016-04-29 4 ProblemAct ENS_[facility] Equinus, Tailor bunion, acquired pes cavus, plantar flex met, RIGHT other acquired deformities active 2016-04-29 4 ProblemAct ENS_[facility] Insulin treated type 2 diabetes mellitus active 2016-10-29 1 ProblemAct E[facility] Neurologic disorder associated with type II diabetes mellitus active 2016-07-30 8 ProblemAct ENS_[facility] DIABETES UNCOMP /CONTROLLED active 2012-09-28 3 ProblemAct E[facility] PARONYCHIA TOE active 2012-09-28 3 ProblemAct ENS_[facility] Blister left lesser toe(s), initial encounter active 1 ProblemAct ENS_[facility] Cellulitis of left lower limb active 2020-02-28 2 ProblemAct ENS_[facility] Osteoarthritis of left knee joint active 2023-04-30 0 ProblemAct ENS_[facility] Encounters Encounter Type Encounter Reason Primary Diagnosis Location Date Ambulatory Wound Care Wound Care [facility] 05/08/2025 Ambulatory Wound Care Wound Care [facility] 04/25/2025 Ambulatory [facility] 04/23/2025 Ambulatory [facility] 04/17/2025 Ambulatory Wound Care Wound Care [facility] 04/16/2025 Ambulatory Wound Care Type 2 diabetes mellitus with foot ulcer (CMS/[facility] V24, CMS/[facility] V28) [facility] 04/08/2025 Ambulatory Wound Care Non-pressure chr onic ulcer of other part of left foot with unspecified severity (CMS/[facility] V24, [facility] V28) [facility] 04/01/2025 Ambulatory [facility] 03/14/2025 Ambulatory [facility] 02/05/2025 Ambulatory [facility] 02/05/2025 Ambulatory [facility] 02/05/2025 Ambulatory Type 2 diabetes mellitus with diabetic nephropathy Type 2 diabetes mellitus with diabetic neph[place] [facility] [place] Amb[place] [facility] 04/19/20 Ambulatory [facility] 04/12/20 Ambulatory [facility] 04/10/20 Ambulatory [facility] 04/06/20 Ambulatory Chronic atrial fibrillation, unspecified Chronic atrial fibrillation, unspecified [facility] 03/30/2024 Ambulatory [facility] 03/30/20 Ambulatory [facility] 03/23/2024 Ambulatory [facility] 03/22/20 Ambulatory Essential (primary) hypertension Essential (primary) hypertension [facility] 12/21/2023 Ambulatory Type 2 diabetes mellitus with diabetic neuropathy, unspecified Type 2 diabetes mellitus with diabetic neuropathy, unspecified [facility] 12/21/2023 Ambulatory Type 2 diabetes mellitus with diabetic neuropathy, unspecified Type 2 diabetes mellitus with diabetic neuropathy, unspecified [facility] [place] Ambulatory Chronic atrial fibrillation, unspecified Chronic atrial fibrillation, unspecified [facility] 11/10/2023 Ambulatory [facility] 09/14/2023 Ambulatory [facility] 09/13/2023 Ambulatory [facility] 08/24/20 23 Ambulatory [facility] 08/17/20 23 Ambulatory [facility] 08/09/2023 Emergency Cellulitis of unspecified part of limb Cellulitis of unspecified part of limb [facility] 07/26/2023 Ambulatory [facility] 07/05/2023 Ambulatory [facility] 07/05/2023 Ambulatory [facility] 05/27/2023 Ambulatory [facility] 05/10/2023 Ambulatory [facility] 05/02/2023 Ambulatory [facility] 05/02/2023 [facility]ulatory [facility] [place] 04/28/2023 [facility] [place] 04[facility]28/2023 [facility] [place] 04/28/2023 [facility] [place] 04/28/2023 Care Team Organization Name Specialty Phone Email Start Date End Da te [facility] 04/01/2025 [facility] 04/01/2025 [facility] 2024 [employer] [facility] 03/23/2024 02/13/2025 [facility] 03/09/202403/28 [facility] 12/18/2023 [facility] 11/2906/11/2025 [facility] [place]2025 [facility] 12/07/2023 12/07/2023 [facility] 202206/11/2025 [facility] 07/2607/26/2023 [facility] 04/30/2023 [place] [employer] [facility]
--- OUTSIDE RECORDS SUMMARY | 2025-07-10 15:03 | XMS_ITS | Clinical Summary ---
Author Organization [facility] Address [address] [place] [address] Phone Care Team Providers Care [employer] Name Role Phone Smiley Leo MD Primary Care Provider [phone] Allergies Active Allergy Reactions Criticality Noted Date [...] Units 1 Active Insulin Syringe 30G X 516 1 ML misc USE TO INJECT INSULIN [...] 03/05/2022, 10/27/2021, Additional history exists Influenza Vaccine (#1) 2025 Hepatitis B Vaccine Aged Out No [...] % [facility] 12/19/2020 [facility] [id number] LICITED RESULTS Final Result [facility] from Last 3 Months or Most Recently Relevant to Health Maintenance Insurance Care Teams [employer] Relationship Specialty Start Date End Date Smiley Leo MD [address] PCP - General 12/08/20
== END 2025-07-10 15:07 | disposition home or self-care (01) ==
LOC: HO.HKAE 14:56
PROVIDERS: PCP Internal Medicine Pulmonary Disease; Visit Provider Internal Medicine Hypertension Specialist
DX: N18.9 Chronic kidney disease, unspecified (principal); E87.6 Hypokalemia
CPT/HCPCS: 99214